=== PATIENT | male | born 1965 | race African-American/Black ===

== ENCOUNTER 2024-03-12 10:12 | Emergency (ER) | payer OTHER, SELFPAY ==
[2024-03-12 10:40] VITALS: BP 175/93; PULSE 64; RESP 16; TEMP 36.8; O2SAT 100
--- NOTE | 2024-03-12 12:04 | ED.GENADULT ---
HPI - General Adult General Chief complaint: Unspecified Stated complaint: ELEVATED BP OUT OF MEDS FROM CHESTNUT Time Seen by Provider: 03/12/24 11:32 History of Present Illness HPI narrative: 59-year-old male presents emergency room requesting med refill for amlodipine. Patient has no history of hypertension, has not taken his medications for 4 days. Denies chest pain, shortness of breath, palpitations, headaches, dizziness, hearing or vision changes. Related Data Home Medications Medication Instructions Recorded Confirmed amlodipine 10 mg tablet (Norvasc) 10 mg PO DAILY 03/12/24 03/12/24 Review of Systems Review of Systems: ROS unremarkable except for noted in HPI PMFSH Past Medical History Medical History Hepatitis C HTN (hypertension) Tobacco use Exam Narrative: GENERAL: Well-appearing, well-nourished, no physical limitations, and in no acute distress. HEAD: Normocephalic, atraumatic. EYES: Conjunctivae normal, PERRLA and EOMI. CHEST: Clear to auscultation. No respiratory distress. No wheezes rales or rhonchi. HEART: Regular rate and rhythm. No murmur heard. Normal peripheral pulses. ABDOMEN: Soft, nontender, nondistended, normal active bowel sounds. EXTREMITIES: Normal range of motion. No edema. No clubbing or cyanosis SKIN: Warm, dry, no rash. No noted wounds NEURO: No focal deficits. Alert and oriented x3. MAEW. CN's II-XI intact bilaterally, normal gait PSYCH: Cooperative. Normal mood and affect. Course Vital Signs Vital signs: Vital Signs Temperature 36.8 C 03/12/24 10:40 Pulse Rate 64 03/12/24 10:40 Respiratory Rate 16 03/12/24 10:40 Blood Pressure 175/93 H 03/12/24 10:40 Pulse Oximetry 100 03/12/24 10:40 Temperature 36.8 C 03/12/24 10:40 Pulse Rate 64 03/12/24 10:40 Respiratory Rate 16 03/12/24 10:40 Blood Pressure 175/93 H 03/12/24 10:40 Pulse Oximetry 100 03/12/24 10:40 Medical Decision Making Vital Signs Vital Signs: Vital Signs Temperature 36.8 C 03/12/24 10:40 Pulse Rate 64 03/12/24 10:40 Respiratory Rate 16 07/17/24 10:40 Blood Pressure 175/93 H 03/12/24 10:40 Pulse Oximetry 100 03/12/24 10:40 Temperature 36.8 C 03/12/24 10:40 Pulse Rate 64 03/12/24 10:40 Respiratory Rate 16 03/12/24 10:40 Blood Pressure 175/93 H 03/12/24 10:40 Pulse Oximetry 100 03/12/24 10:40 Discharge Plan Discharge Clinical Impression: HTN (hypertension) Patient Disposition: Home, Self-Care Condition: Stable Instructions: Antibiotic Form, Hypertension (ED) Prescriptions: New amlodipine 10 mg tablet 10 mg PO DAILY Qty: 30 0RF No Action amlodipine [Norvasc] 10 mg tablet 10 mg PO DAILY Follow-up/Referrals: Jayjay Cantu MD [Primary Care Provider] - Time of Disposition: 12:06
[2024-03-12 12:11] VITALS: BP 155/93; PULSE 50; PULSE 51; RESP 14; O2SAT 99
[2024-03-12] MEDS: amLODIPine BESYLATE 10 MG TABLET PO (12:17)
== END 2024-03-12 12:20 | disposition home or self-care (01) ==
PROVIDERS: Emergency Provider Nurse Practitioner Family; PCP Internal Medicine
DX: I10 Essential (primary) hypertension (principal); Z76.0 Encounter for issue of repeat prescription
CPT/HCPCS: 99283; A9270

== ENCOUNTER 2025-01-13 13:44 | Emergency (ER) | payer OTHER, SELFPAY ==
[2025-01-13 13:46] VITALS: BP 142/73; PULSE 68; RESP 16; TEMP 36.6; O2SAT 98
--- OUTSIDE RECORDS SUMMARY | 2025-01-13 13:47 | XMS_ITS | Encounter Summary ---
Author Organization [facility] Address [address] [place] [address] Phone Care Team Providers Care Silk Folder Name Role Phone Krysta Flores PAC Primary Care Pro vider Ami Amin MD Unavailable Jayjay Cantu MD Primary Care Provider [phone] Reason for Visit * Reason Comments Medication Refill Encounter Details Date Type Department Care Team (Late st Contact Info) Description 10/12/2020 Refill [facility] - Family [facility] [address] [place] [address] Krysta Flores, PAC [address] [place] [address] Medication Refill Social History Tobacco Use Types Packs/Day Years Used Date Smoking Tobacco: Every Day Cigarettes 0.1 35 Smokeless Tobacco: Never Comments:1 to 2 a day Alcohol Use Standard Drinks/Week Comments Yes 1 (1 standard drink = 0.6 oz pur e alcohol) 1-2 drinks week PHQ-2 Answer Date Recorded PHQ-2 Score 0 04/30/2019 Sex and Gender Information Value Date Recorded Sex Assigned at Not on file Legal Sex Male 10:02 AM CDT Gender Identity Not on file Sexual Orientation Not on file Occupation Industry Job Start Date Job End Date unemployed Not on file Not on file Not on file documented as of this encounter Miscellaneous Notes * Telephone Encounter - Elle Danielson RN - 10/13/2020 4:21 PM CST gabapentin (NEURONTIN) 100 MG Capsule 60 Capsule 0 10/04/2020 Sig: TAKE 1 CAPSULE BY MOUTH TWICE DAILY Sent to pharmacy as: Gabapentin 100 MG Oral Capsule (NEURONTIN) Class: E Prescribe E-Prescribing Status: Receipt confirmed by pharmacy (10/04/2020 10:00 AM CHILD PSYCHIATRIST) gabapentin (NEURONTIN) 100 MG Capsule [[id number]] 1000 Status: Active Ordering user: Krysta Flores PAC 10/04/20 1000 Authorized by: Krysta Flores PAC Frequency: ??10/04/20 - Until Discontinued Released by: Krysta Flores PAC 10/04/20 1000 Pharmacy [id number] AT [facility] duplicate D PSYCHIATRIST documented in this encounter Plan of Treatment Not on file documented as of this encounter Visit Diagnoses Not on filedocumented in this encounter Additional Health Concerns Infection Onset Date Last Indicated Resolved Time COVID - 19 09/19/2024 09/19/2024 09/19/2024 11:5 8 AM CHILD PSYCHIATRIST COVID - 19 Confirmed 09/19/2024 09/19/2024 025 12:16 AM CHILD PSYCHIATRIST Assessment Noted Time PHQ-9 Depression Total Score: 0 11/05/19 19 12:00 PM CDT documented as of this encounter Care Teams Silk Folder Relationship Specialty Start Date End Date Krysta Flores PAC [address] [place] [address] PCP - General Physician Breakfast Manager 05/31/17 11/23/21 Jayjay Cantu MD NPI: [id number] [place] [address] [place] [address] PCP - General Internal Medicine 09/19/24 Ami Amin MD [address] [address] Psychiatry 05/28/19 documented as of this encounter
--- OUTSIDE RECORDS SUMMARY | 2025-01-13 13:47 | XMS_ITS | Encounter Summary ---
Author Organization [facility] Address [address] [place] [address] Phone Care Team Providers Care Forming Fixer Name Role Phone Krysta Flores PAC Primary Care Pro vider Ami Amin MD Unavailable Jayjay Cantu MD Primary Care Provider [phone] Reason for Visit * Reason Comments Medication Refill Encounter Details Date Type Department Care Team (Late st Contact Info) Description 10/23/2020 Refill [facility] - Family [facility] [address] [place] [address] Krysta Flores, PAC [address] [place] [address] Medication Refill Social History Tobacco [...] encounter Miscellaneous Notes * Telephone Encounter - Krysta Flores PAC - 10/27/2020 4:10 PM CST Changed date to 11/01 He just had this filled 10/04 He needs to f/u with NEURO or pain mgment for continued use of this medication He has seen neuro in the past Let him know that he needs to continue seeing them to get this medication in the future REPAIRER * Telephone Encounter - Kalpana Tsai RN - 10/25/2020 10:01 AM TUBE REPAIRER Please review and sign. REPAIRER documented in this encounter Plan of Treatment Not on file documented as of this encounter Visit Diagnoses Not on filedocumented in this encounter Additional Health Concerns Infection Onset Date Last Indicated Resolved Time COVID - 19 09/19/2024 09/19/2024 09/19/2024 11:5 8 AM TUBE REPAIRER COVID - 19 Confirmed 09/19/2024 09/19/2024 025 12:16 AM TUBE REPAIRER Assessment Noted Time PHQ-9 Depression Total Score: 0 11/05/19 19 12:00 PM CDT documented as of this encounter Care Teams Forming Fixer Relationship Specialty Start Date End Date Krysta Flores PAC [address] [place] [address] PCP - General Physician Braker Passenger Train 05/31/17 11/23/21 Jayjay Cantu MD [address] [place] [address] PCP - General Internal Medicine 09/19/24 Ami Amin MD [address] [place] [address] Psychiatry 05/28/19 documented as of this encounter
--- OUTSIDE RECORDS SUMMARY | 2025-01-13 13:47 | XMS_ITS | Clinical Summary ---
Author Organization [facility] Address [address] [place] [address] Care Team Providers Care Client Partner Name Role Phone Unavailable Primary Care Provider Unavailabl e Source Comments [facility],non-owned Affiliates and Associated Physician Practices is amultiple site organization consisting of ambulatory clinics and hospital sitesin [place], [place], [place] and [place]. This disclosure is being madepursuant to the Care Everywhere program and may not contain all information available regarding this patient. Last updated [facility] Allergies Active Allergy Reactions Criticality Noted Date Comments Tramadol Swelling,Other,Skin Reactions,Nausea and/or Vomiting Medium 07/15/2017 Pt reports skin reaction and anxiety Pt reports skin reaction and anxiety Medications * This document contains information received from the source organization and may not represent a complete record from that organization. * Be aware that medications may not be up to date on this document. Alwaysverify current medications with the patient. amLODIPine (NORVASC) 10 MG tabletIndicati ons:Hypertensi on Take 10 mg by mouth once daily Reasons: High Blood Pressure Disorder Active ibuprofen (MOTRIN) 600 MG tabletIndicati ons:pain Take 600 mg by mouth every 8 hours as needed for Pain Reasons: pain Active QUEtiapine (SEROQUEL) 50 MG tabletIndicati ons:schizoaffe ctive Take 1 tablet by mouth at bedtime Reasons: schizoaffective 30 tablet 1 07/17/20 17 Active meloxicam (MOBIC) 7.5 MG tablet Take 7.5 mg by mouth 2 times daily 05/29/20 18 Active PARoxetine (PAXIL) 10 MG tablet TAKE 1 TABLET BY MOUTH DAILY 05/28/20 18 Active Active Problems Problem Noted Date Diagnosed Date Cervicalgia 04/03/2018 Chronic bilateral low back pain without sciatica 04/03/2018 Numbness and tingling in both hands 04/03/2018 Numbness and tingling of both feet 04/03/2018 Depressive disorder 07/16/2017 Tobacco use disorder 06/28/2017 Multiple closed fractures of ribs of right side 06/21/2017 Pleural effusion 06/21/2017 Pneumothorax 06/21/2017 Hepatitis C virus infection without hepatic coma 05/31/2017 Overview (06/27/2018): 06/07/18 Fibroscan CAP 261, E 14.1 kPa Hypertension 05/29/2017 Schizophrenia 05/29/2017 Social History Tobacco Use Types Packs/Day Years Used Date Smoking Tobacco: Every Day Cigarettes Smokeless Tobacco: Former Tobacco Cessation:Ready to Q uit: No; Counseling Given: No Alcohol Use Standard Drinks/Week Comments Yes 3 (1 standard drink = 0.6 oz pur e alcohol) 1-2 glasses every other day Sex and Gender Information Value Date Recorded Sex Assigned at Not on file Legal Sex Male 9:15 PM POLICE INSPECTOR Gender Identity Not on file Sexual Orientation Not on file Last Filed Vital Signs Vital Sign Reading Time Taken Comments Blood Pressure 154/106 06/07/2018 11:06 AM CDT Pulse 67 06/07/2018 11:06 AM CDT Temperature 36.5 C (97.7 F) 06/07/2018 11:06 AM CDT Respiratory Rate 18 07/17/2017 12:19 PM POLICE INSPECTOR Oxygen Saturation 96% 06/07/2018 11:06 AM CDT Inhaled Oxygen Concentration - - Weight 76.7 kg (169 lb) 06/07/2018 11:06 AM CDT Height 167.6 cm (5' 6 ) 06/07/2018 11:06 AM CDT Body Mass Index 27.28 06/07/2018 11:06 AM CDT Plan of Treatment Health Maintenance Due Date Last Done Comments COLOGUARD (AGES 45-75) - COLON CA SCREENING 1967 COLON MONITORING 1967 COLONOSCOPY - COLON CA SCREENING 1967 CT COLONOGRAPHY - COLON CA SCREENING 1967 Colorectal Cancer Screening 1967 FIT - COLON CA SCREENING 1967 FLEX SIG - COLON CA SCREENING 1967 HIV SCREENING 1982 DTAP/TDAP/TD VACCINES (1 - Tdap) 1986 HEPATITIS B VACCINE (1 of 3 - 19+ 3-dose series) 1986 PNEUMOCOCCAL VACCINE 50+ (1 of 2 - PCV) 1986 ZOSTER VACCINE (1 of 2) 2017 SCREENING FOR DIABETES 07/16/2020 07/16/2017, 2016 LIPID TESTING 07/16/2022 07/16/2017 COVID-19 VACCINE (1 - season) 2024 DEPRESSION SCREENING 08/27/2024 INFLUENZA VACCINE (Season Ended) 2025 HEPATITIS C SCREENING Completed 06/07/2018 , 05/30/2018, 04/03/2018, Additional history exists HIB VACCINE Aged Out No longer eligi ble based on patient's age to complete this topic HPV VACCINE Aged Out No longer eligi ble based on patient's age to complete this topic MENINGOCOCCAL (Group B) VACCINE SHARED DECISION-MAKING Aged Out No longer eligible based on patient's age to complete this topic MENINGOCOCCAL GROUPS A/C/Y/W VACCINE Aged Out No longer eligible based on patient's age to complete this topic Procedures Procedure Name Priority Date/Time Associated Diagnosis Comments LIPID PROFILE AM Draw 07/16/2017 2:08 AM POLICE INSPECTOR HEMOGLOBIN A1C Routine 07/16/2017 2:07 AM POLICE INSPECTOR from Last 3 Months or Most Recently Relevant to Health Maintenance Results * LIPID PROFILE (07/16/2017 2:08 AM POLICE INSPECTOR) Cholesterol 159 <200 mg/dL 07/16/2017 2:43 AM POLICE INSPECTOR [facility] Triglycerides 86 <150 mg/dL 07/16/2017 2:43 AM POLICE INSPECTOR [facility] HDL Cholesterol 55 >40 mg/dL 7 2:43 AM POLICE INSPECTOR [facility] LDL Calculated 87 <130 mg/dL 07/16/2017 2:43 AM POLICE INSPECTOR [facility] VLDL Calculated 17 <=30 mg/dL 7 2:43 AM POLICE INSPECTOR [facility] Chol HDL Ratio 2.9 <4.5 07/16/2017 2:43 AM POLICE INSPECTOR [facility] LDL/HDL Ratio 1.6 <5.0 07/16/2017 2:43 AM POLICE INSPECTOR [facility] Blood BLOOD SPECIMEN / Unknown Venipuncture / Unknown 07/16/2017 2:08 AM POLICE INSPECTOR 07/16/2017 2:18 AM POLICE INSPECTOR Saleem Patel MD LAB - CHEMISTRY ORD ERABLES Final Result Performing Organization Address [facility] Co de Phone Number [facility] [address] [place] [address] * HEMOGLOBIN A1C (07/16/2017 2:07 AM POLICE INSPECTOR) Hemoglobin A1c 5.1 4.2 - 6.3 % 07/16/2017 2:40 AM POLICE INSPECTOR [facility] Estimated Average Glucose 100 mg/dL 07/16/2017 2:40 AM POLICE INSPECTOR [facility] Whole Blood BLOOD SPECIMEN WITH EDTA / Unknown Venipuncture / Unknown 07/16/2017 2:07 AM POLICE INSPECTOR 07/16/2017 2:18 AM POLICE INSPECTOR Saleem Patel MD LAB - CHEMISTRY ORD ERABLES Final Result Performing Organization Address [facility] de Phone Number [facility] [address] [place] [address] from Last 3 Months or Most Recently Relevant to Health Maintenance Insurance [facility] MEDICA[facility] - [place] Advance Directives * Full Code (Latest Code Status on File) Date Activated Date Inactivated Comments 07/16/2017 1:38 AM 07/17/2017 3:46 PM
--- OUTSIDE RECORDS SUMMARY | 2025-01-13 13:47 | XMS_ITS | Encounter Summary ---
Author Organization [facility] Address [address] [place] [address] Phone Care Team Providers Care Screen And Cyclone Repairer Name Role Phone Krysta Flores PAC Primary Care Pro vider Ami Amin MD Unavailable Jayjay Cantu MD Primary Care Provider [phone] Reason for Visit * Reason Comments Medication Refill Encounter Details Date Type Department Care Team (Late st Contact Info) Description 03/03/2021 Refill [facility] Medical [facility] - Family [facility] [address] [place] [address] Krysta Flores, PAC [address] [address] Medication Refill Social History Tobacco Use Types Packs/Day Years Used Date Smoking Tobacco: Every Day Cigarettes 0.1 35 Smokeless Tobacco: Never Comments:1 to 2 a day Alcohol Use Standard Drinks/Week Comments Not Currently 1 (1 standard drink = 0.6 oz [...] encounter Miscellaneous Notes * Telephone Encounter - Suri Van RN - 03/04/2021 8:53 AM CDT Medication failed the protocol, provider to review and approve the medication order if appropriate. Requested Prescriptions Pending Prescriptions Disp Refills gabapentin (NEURONTIN) 100 MG Capsule [Pharmacy Med Name: GABAPENTIN 100MG CAPSULES] 60 Capsule 0 Sig: TAKE 1 CAPSULE BY MOUTH TWICE DAILY [facility]: Anticonvulsants Passed - 03/03/2021 1:05 PM Passed - Valid encounter within last 12 months Past Office Visits Recent Outpatient Visits 7 months ago Chronic bilateral low back pain without sciatica [facility] - Krysta Zavala PAC 1 year ago Essential hypertension [facility] Krysta Zavala PAC 1 year ago Essential hypertension [facility] Krysta Zavala PAC 2 years ago Essential hypertension [facility] - Krysta Zavala PAC 2 years ago [facility]a [facility] Upcoming Appointments STATION INSTALLER - Recent and Past Visits Recent Visits Date Type Provider Dept 07/16/20 Office Visit [facility]rysta Flores PAC [facility] Showing recent visits within past 460 days with a meds authorizing provider and meeting all other requirements Future Appointments No visits were found meeting these conditions. Showing future appointments within next 90 days with a meds authorizing provider and meeting all other requirements documented in this encounter Plan of Treatment Not on file documented as of this encounter Visit Diagnoses Not on filedocumented in this encounter Additional Health Concerns Infection Onset Date Last Indicated Resolved Time COVID - 19 09/19/2024 09/19/2024 09/19/2024 11:5 8 AM FARM EQUIPMENT ENGINEER COVID - 19 Confirmed 09/19/2024 09/19/202410/09/2 025 12:16 AM FARM EQUIPMENT ENGINEER Assessment Noted Time PHQ-9 Depression Total Score: 0 03/11/20 19 12:00 PM CDT documented as of this encounter Care Teams Screen And Cyclone Repairer Relationship Specialty Start Date End Date Krysta Flores, PRAVIN [address] [facility] [address] PCP - General Physician Roll Trucker 05/31/17 11/23/21 Jayjay Cantu MD [address] [facility] [place] [address] PCP - General Internal Medicine 09/19/24 Ami Amin MD [address] [address] Psychiatry 05/28/19 documented as of this encounter
--- OUTSIDE RECORDS SUMMARY | 2025-01-13 13:47 | XMS_ITS | Clinical Summary ---
Author Organization [facility] Address [address] [place] [address] Phone Care Team Providers Care Director Of Radio Services Name Role Phone Ami Amin MD Unavailable Jayjay Cantu MD Primary Care Provider [phone] Medications QUEtiapine Fumarate (SEROQUEL) 50 MG Tablet Take 1 Tab by mouth daily. 30 Tab 1 9 Active Additional Information Patient not taking.Reported on 05/28/2019 PARoxetine (PAXIL) 10 MG Tablet Take 1 Tab by mouth daily. 90 Tab 9 Active PARoxetine (PAXIL) 40 MG Tablet Take 1 Tab by mouth daily. 1 9 Active QUEtiapine (SEROQUEL) 100 MG Tablet Take 1 Tab by mouth nightly. 1 9 Active triamcinolone (KENALOG) 0.1 % Ointment Apply thin film to affected area(s) twice daily until healed. 80 g 3 9 Active Additional Information Patient not taking.Reported on 07/16/2020 meloxicam (MOBIC) 15 MG Tablet TAKE 1 TABLET BY MOUTH EVERY MORNING WITH FOOD 90 Tab 1 0 Active losartan potassium-hydro chlorothiazide (HYZAAR) 100-25 MG Tablet Take by mouth. 01/19/201 6 Active amLODIPine (NORVASC) 10 MG Tablet Take 1 Tab by mouth daily. 90 Tab 2 1 Active Zolpidem Tartrate (AMBIEN PO) Take by mouth. Act parveen ondansetron (ZOFRAN) 4 MG Tablet Take 1 Tablet by mouth every 8 hours as needed for Nausea - 1st line. 10 Tablet 1 Active dicyclomine (BENTYL) 20 MG Tablet Take 1 Tablet by mouth every 6 hours. 30 Tablet 1 Active gabapentin (NEURONTIN) 100 MG Capsule TAKE 1 CAPSULE BY MOUTH TWICE DAILY 60 Capsule 1 Active Active Problems Problem Noted Date Diagnosed Date Eczema 05/28/2019 Cocaine use 02/04/2019 Overview (02/04/2019): UDS 2019 Chronic pain of both knees 07/03/2018 Chronic bilateral low back pain without sciatica 04/03/2018 Cervicalgia 04/03/2018 Numbness and tingling in both hands 04/03/2018 Numbness and tingling of both feet 04/03/2018 Marijuana abuse 06/28/2017 Tobacco use disorder 06/28/2017 Multiple closed fractures of ribs of right side 06/21/2017 Pneumothorax 06/21/2017 Pleural effusion 06/21/2017 Hepatitis C virus infection without hepatic coma 05/31/2017 Hypertension 05/29/2017 Schizophrenia 05/29/2017 Encounters Date Type Department Care Team Description 10/28/2024 Telephone [facility] [address] [place] [id number] Nina Harding, PT from Last 3 Months Immunizations Immunization Administration Dates Next Due Hepatitis A And Hepatitis B Vaccine 12/15/2015,0 09/06/2015,06/15/2015 TDAP Vaccine 08/27/2011 Family History Medical History Relation Name Comments Cancer Maternal Aunt breast Diabetes Maternal Grandfather Stroke Maternal Grandmother Diabetes Mother Heart Attack Mother Relation Name Status Comments Father Maternal Aunt Maternal Grandfather Maternal Grandmother Mother Alive Social History Tobacco Use Types Packs/Day Years Used Date Smoking Tobacco: Every Day Cigarettes 0.1 35 Smokeless Tobacco: Never Tobacco Cessation:Ready to Q uit: No; Counseling Given: Yes Comments:1 to 2 a day Alcohol Use [...] file Not on file Not on file Last Filed Vital Signs Vital Sign Reading Time Taken Comments Blood Pressure 130/99 09/19/2024 12:50 PM BULB FARMWORKER Pulse 88 09/19/2024 12:50 PM BULB FARMWORKER Temperature 36.6 C (97.8 F) 09/19/2024 10:49 AM BULB FARMWORKER Respiratory Rate 17 09/19/2024 12:50 PM BULB FARMWORKER Oxygen Saturation 100% 09/19/2024 12:50 PM BULB FARMWORKER Inhaled Oxygen Concentration - - Weight 63.5 kg (140 lb) 09/19/2024 10:49 AM BULB FARMWORKER Height 167.6 cm (5' 6 ) 09/19/2024 10:49 AM BULB FARMWORKER Body Mass Index 22.6 09/19/2024 10:49 AM BULB FARMWORKER Plan of Treatment Health Maintenance Due Date Last Done Comments Cologuard 2017 Immunochemical Fecal Occult Blood 2017 Pneumococcal Immunization (5 0+ years) (1 of 1 - PCV) 2017 Zoster Immunization (1 of 2) 2017 Colonoscopy 11/05/2018 11/05/2017 Colorectal Cancer Screening 11/05/2018 Td Immunization Every 10 Yea rs (Adults With 1 Tdap) 08/27/2021 08/27/2011 Influenza Immunization (#1) 2024 SARS-COV-2 Immunization ( - season) 2024 Respiratory Syncytial Virus (RSV) Immunization (Adult) (1 - 1-dose 75+ series) 2042 11/05/2017 Hepatitis B Immunization Completed 016, 09/06/2015, 06/15/2015 PSA Discussion Completed 11/05/2017, 06/04/2017 Meningococcal Immunization (ACWY) Aged Out No longer eligible b ased on patient's age to complete this topic Rotavirus Immunization Aged Out No lo nger eligible based on patient's age to complete this topic Procedures Procedure Name Priority Date/Time Associated Diagnosis Comments PSA DIAGNOSTIC,TOTAL Routine 11/05/2017 7:28 AM CDT from Last 3 Months or Most Recently Relevant to Health Maintenance Results * (ABNORMAL) PSA Diagnostic Total (11/05/2017 7:28 AM CDT) PSA, TOTAL (PROSTATIC SPECIFIC ANTIGEN) 5.36(H) 0.00 - 4.00 ng/mL 11/05/2017 8:44 AM CDT [facility] Blood specimen (specimen) BLOOD SPECIMEN / Unknown Venipuncture / Unknown 11/05/2017 7:28 AM CDT 11/05/2017 7:57 AM CDT Narrative [facility] - 11/05/2017 8:44 AM CDT PSA NOTE: The PSA value should be used in conjunction with information available from clinical evaluation and other diagnostic procedures. Jamaal Rahman DO CHEMISTRY ORDERABLES Final Resu lt [facility] [address] [place] [address] from Last 3 Months or Most Recently Relevant to Health Maintenance Insurance MEDICAID [place] Care Teams Director Of Radio Services Relationship Specialty Start Date End Date Jayjay Cantu MD [address] [facility] [address] PCP - General Internal Medicine 09/19/24 Ami Amin MD [address] [place] [address] Psychiatry 05/28/19
--- OUTSIDE RECORDS SUMMARY | 2025-01-13 13:47 | XMS_ITS | Encounter Summary ---
Author Organization [facility] Address [address] [place] [address] Phone Care Team Providers Care Food Supervisor Name Role Phone Krysta Flores PAC Primary Care Pro vider Ami Amin MD Unavailable Jayjay Cantu MD Primary Care Provider [phone] Reason for Visit * Reason Comments Medication Refill Encounter Details Date Type Department Care Team (Late st Contact Info) Description 09/24/2020 Refill [facility] - Family [facility] [address] [place] [address] Krysta Flores, PAC [address] [facility] [place] [address] Medication Refill Social History Tobacco [...] encounter Miscellaneous Notes * Telephone Encounter - Jennifer Payne RN - 10/11/2020 11:54 AM CST Krysta Flores refilled the patient's gabapentin on 10/04/20. / See telephone encounter in chart 10/11/20. MATERNITY * Telephone Encounter - Krysta Flores PAC - 10/04/2020 10:00 AM CST Does this patient see neurologist? If so, future Neurontin orders need to come thru them. Thanks! MATERNITY * Telephone Encounter - Elle Danielson RN - 09/27/2020 8:53 AM CST Last dispersed 07/16/20 for 30 days supply Per nursing clinical judgement, provider to review and approve the medication(s) order(s) if appropriate. Requested Prescriptions Pending Prescriptions Disp Refills gabapentin (NEURONTIN) 100 MG Capsule [Pharmacy Med Name: GABAPENTIN 100MG CAPSULES] 60 Cap Sig: TAKE 1 CAPSULE BY MOUTH TWICE DAILY Neurology: Anticonvulsants Passed - 09/24/2020 5:35 PM Passed - Valid encounter within last 12 months Past Office Visits Recent Outpatient Visits 2 months ago Chronic bilateral low back pain without sciatica [facility] - Krysta Zavala PAC 10 months ago Essential hypertension [facility] - Krysta Zavala PAC 1 year ago Essential hypertension [facility] - Krysta Zavala PAC 1 year ago Essential hypertension [facility] - Krysta Zavala PAC 2 years ago Arthritis [facility] - Krysta Zavala PAC Upcoming Appointments Future Appointments In 3 months Krysta Flores PAC [facility] - Internal Medicine - [address]ja [address] 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 Showing future appointments within next 90 days with a meds authorizing provider and meeting all other requirements MATERNITY documented in this encounter Plan of Treatment Not on file documented as of this encounter Visit Diagnoses Not on filedocumented in this encounter Additional Health Concerns Infection Onset Date Last Indicated Resolved Time COVID - 19 09/19/2024 09/19/2024 09/19/2024 11:5 8 AM RN MATERNITY COVID - 19 Confirmed 09/19/2024 09/19/2024 025 12:16 AM RN MATERNITY Assessment Noted Time PHQ-9 Depression Total Score: 0 11/05/19 19 12:00 PM CDT documented as of this encounter Care Teams Food Supervisor Relationship Specialty Start Date End Date Krysta Flores PAC [address] [place] [address] PCP - General Physician Network Engineer 05/31/17 11/23/21 Jayjay Cantu MD [address] [facility] [place] [address] PCP - General Internal Medicine 09/19/24 Ami Amin MD [address] [address] Psychiatry 05/28/19 documented as of this encounter
--- OUTSIDE RECORDS SUMMARY | 2025-01-13 13:47 | XMS_ITS | Encounter Summary ---
Author Organization [facility] Address [address] [facility] [place] [address] Phone Care Team Providers Care Customer Service Associate Name Role Phone Ami Amin MD Unavailable Jayjay Cantu MD Primary Care Provider [phone] Reason for Referral * PT/OT/ST (Routine) - Authorized Specialty Diagnoses / Procedures Referred By Contac t Referred To Contact Physical Therapy Diagnoses Adhesive capsulitis of right shoulder Jayjay Cantu MD [address] [place] [address] [place] [address] Phone: tel: fax: [facility] [address] [facility], [address] [address] Phone: tel: fax: Referral ID Status Reason Start Date Expiration Date V isits Requested Visits Authorized [id number] Authorized 09/24/2024 50 12 Scheduling Instructions PACKER Encounter Details Date Type Department Care Team (Late st Contact Info) Description 09/24/2024 Transcribe Orders [facility] [address] [place] [address] Jayjay Cantu MD [address] [place] [address] Adhesive capsulitis of right shoulder (Primary Dx) Social History Tobacco Use Types Packs/Day Years [...] on file documented as of this encounter Plan of Treatment Scheduled Referrals Name Type Priority Associated Diagnoses Orde r Schedule PHYSICAL THERAPY REFERRAL Outpatient Referral Routine Adhesive capsulitis of right shoulder Expected: 09/24/2024, Expires: 09/24/2025 documented as of this encounter Visit Diagnoses Diagnosis Adhesive capsulitis of right shoulder- Primary Adhesive capsulitis of shoulder documented in this encounter Additional Health Concerns Infection Onset Date Last Indicated Resolved Time COVID - 19 Confirmed 09/19/2024 09/19/2024 025 12:16 AM GIFT PACKER Assessment Noted Time PHQ-9 Depression Total Score: 0 11/05/19 19 12:00 PM CDT documented as of this encounter Care Teams Customer Service Associate Relationship Specialty Start Date End Date Jayjay Cantu MD [address] [place] [address] PCP - General Internal Medicine 09/19/24 Ami Amin MD [facility] [address] [address] Psychiatry 05/28/19 documented as of this encounter
--- OUTSIDE RECORDS SUMMARY | 2025-01-13 13:48 | XMS_ITS | Patient Health Record ---
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 Name Role Phone Cantu Jayjay Primary Care Provider Yehuda Lema Unavailable [phone] Lucía Spence Unavailable [phone] Lulu Ortiz Unavailable [phone] Donal Pan Unavailable [phone] Kaylyn Clemons Unavailable [phone] Caty Gifford Unavailable [phone] Allergies Allergen (clinical drug ingredient) Drug/Non Drug Allergy documented on EMR Reaction Allergy Type Onset Date Status No Known Drug Allergy Unknown Drug Allergy Active Results Component Value Reference Range Notes Hemoglobin A1c CLIA Waived Reviewed date:09/03/2024 03:14:20 PM Interpretation: Performing Lab: Notes/Report: Hemoglobin A1c 5.2 4.0 - 6.4 % 12 Panel Urine Drug Screen Reviewed date:08/26/2024 03:06:38 PM Interpretation: Performing Lab: Notes/Report: THC neg GUSTAVO neg MOP (OPI) neg AMP neg MET POS BAR neg BZO neg MDMA neg MTD neg OXY neg PCP neg BUP POS UA/M w/rflx Culture, Routine Reviewed date:09/08/2024 11:44:45 AM Interpretation: Performing Lab:[facility] [place], [address] [facility], [place], Phone - [phone], Director - Vivien Notes/Report: Specific [place] 1.016 1.005-1.030 pH 8.0 5.0-7.5 Urine-Color Yellow Yellow Appearance Clear Clear WBC Esterase Negative Negative Protein 1+ Negative/Trace Glucose Negative Negative Ketones Negative Negative Occult Blood Negative Negative Bilirubin Negative Negative Urobilinogen,Semi-Qn 1.0 0.2-1.0 mg/dL Nitrite, Urine Negative Negative Microscopic Examination See below: Micr oscopic was indicated and was performed. Urinalysis Reflex This speci men will not reflex to a Urine Culture. WBC None seen 0 - 5 /hpf RBC None seen 0 - 2 /hpf Epithelial Cells (non renal) None seen 0 - 10 /hpf Casts None seen None seen /lpf Bacteria None seen None seen/Few CBC With Differential/Platel et* Reviewed date:04/10/2024 11:58:15 AM Interpretation: Performing Lab:[facility] [place], [address] [facility], Phone - [phone], Director - Vivien Notes/Report: WBC 6.6 3.4-10.8 x10E3/uL RBC 4.14 4.14-5.80 x10E6/uL Hemoglobin 13.0 13.0-17.7 g/dL Hematocrit 39.5 37.5-51.0 % MCV 95 79-97 fL MCH 31.4 26.6-33.0 pg MCHC 32.9 31.5-35.7 g/dL RDW 12.7 11.6-15.4 % Platelets 237 150-450 x10E3/uL Neutrophils 61 Not Estab. % Lymphs 32 Not Estab. % Monocytes 6 Not Estab. % Eos 0 Not Estab. % Basos 1 Not Estab. % Neutrophils (Absolute) 4.0 1.4-7.0 x10E3/uL Lymphs (Absolute) 2.1 0.7-3.1 x10E3/uL Monocytes(Absolute) 0.4 0.1-0.9 x10E3/uL Eos (Absolute) 0.0 0.0-0.4 x10E3/uL Baso (Absolute) 0.0 0.0-0.2 x10E3/uL Immature Granulocytes 0 Not Estab. % Immature Grans (Abs) 0.0 0.0-0.1 x10E3/uL 12 Panel Urine Drug Screen Reviewed date:07/28/2024 08:57:49 AM Interpretation: Performing Lab: Notes/Report: THC neg GUSTAVO neg MOP (OPI) neg AMP neg MET neg BAR neg BZO neg MDMA neg MTD neg OXY neg PCP neg BUP POS 12 Panel Urine Drug Screen Reviewed date:08/13/2024 09:25:56 AM Interpretation: Performing Lab: Notes/Report: THC neg GUSTAVO neg MOP (OPI) neg AMP neg MET POS BAR neg BZO neg MDMA neg MTD neg OXY neg PCP neg BUP POS 12 Panel Urine Drug Screen Reviewed date:04/09/2024 09:26:34 AM Interpretation: Performing Lab: Notes/Report: THC neg GUSTAVO neg MOP (OPI) neg AMP neg MET neg BAR neg BZO POS MDMA neg MTD neg OXY neg PCP neg BUP POS Buprenorphine and Metabolite (Urine test) Reviewed date:07/09/2024 10:33:31 AM Interpretation: Performing Lab:[facility], [address], [place], Phone - [phone], Director - PhDAbudu Notes/Report: Clinical Information:[id number]:[id number] Buprenorphine Positive Confirmation performed by Mass Spectrometry Buprenorphine Positive Buprenorphine Conf, MS, UR 174 Cutoff=10 ng/m L Norbuprenorphine Positive Norbuprenorphine Conf, MS, UR 584 Cutoff=10 ng/mL 12 Panel Urine Drug Screen Reviewed date:04/30/2024 09:03:25 AM Interpretation: Performing Lab: Notes/Report: THC neg GUSTAVO neg MOP (OPI) neg AMP neg MET neg BAR neg BZO neg MDMA neg MTD neg OXY neg PCP neg BUP POS 12 Panel Urine Drug Screen Reviewed date:06/11/2024 09:26:18 AM Interpretation: Performing Lab: Notes/Report: THC neg GUSTAVO neg MOP (OPI) neg AMP neg MET neg BAR neg BZO neg MDMA neg MTD neg OXY neg PCP neg BUP POS 12 Panel Urine Drug Screen Reviewed date:09/29/2024 10:07:08 AM Interpretation: Performing Lab: Notes/Report: THC neg GUSTAVO neg MOP (OPI) neg AMP neg MET neg BAR neg BZO neg MDMA neg MTD neg OXY neg PCP neg BUP POS 12 Panel Urine Drug Screen Reviewed date:12/03/2024 01:40:59 PM Interpretation: Performing Lab: Notes/Report: THC neg GUSTAVO neg MOP (OPI) neg AMP neg MET neg BAR neg BZO neg MDMA neg MTD neg OXY neg PCP neg BUP POS 12 Panel Urine Drug Screen Reviewed date:01/30/2024 09:12:20 AM Interpretation: Performing Lab: Notes/Report: THC neg GUSTAVO neg MOP (OPI) neg AMP neg MET neg BAR neg BZO neg MDMA neg MTD neg OXY neg PCP neg BUP POS 12 Panel Urine Drug Screen Reviewed date:02/27/2024 09:00:45 AM Interpretation: Performing Lab: Notes/Report: THC neg GUSTAVO neg MOP (OPI) neg AMP neg MET Pos BAR neg BZO neg MDMA neg MTD neg OXY neg PCP neg BUP Pos QuantiFERON-TB Gold Plus ([id number]) Reviewed date:05/26/2024 10:53:23 AM Interpretation:Negative Performing Lab:[facility], [address], [place], Phone - [phone], Director - Vivien Notes/Report: QuantiFERON Incubation Incubation performed. QuantiFERON-TB Gold Plus Negative Negative No response to M tuberculosis antigens detected. Infection with M tuberculosis is unlikely, but high risk individuals should be considered for additional testing (ATS/IDSA/CDC Clinical Practice Guidelines, 2017). The reference range is an Antigen minus Nil result of <0.35 IU/mL. Chemiluminescence immunoassay methodology QuantiFERON Criteria QuantiFERON-TB Gold Plus is a qualitative indirect test for M tuberculosis infection (including disease) and is intended for use in conjunction with risk assessment, radiography, and other medical and diagnostic evaluations. The QuantiFERON-TB Gold Plus result is determined by subtracting the Nil value from either TB antigen (Ag) value. The Mitogen tube serves as a control for the test. QuantiFERON TB1 Ag Value 0.00 QuantiFERON TB2 Ag Value 0.04 QuantiFERON Nil Value 0.01 QuantiFERON Mitogen Value >10.00 12 Panel Urine Drug Screen Reviewed date:12/31/2024 09:07:03 AM Interpretation: Performing Lab: Notes/Report: THC neg GUSTAVO neg MOP (OPI) neg AMP neg MET neg BAR neg BZO neg MDMA neg MTD neg OXY neg PCP neg BUP POS 12 Panel Urine Drug Screen Reviewed date:10/31/2024 10:18:14 AM Interpretation: Performing Lab: Notes/Report: THC neg GUSTAVO neg MOP (OPI) neg AMP neg MET neg BAR neg BZO neg MDMA neg MTD neg OXY neg PCP neg BUP POS 12 Panel Urine Drug Screen Reviewed date:06/25/2024 09:18:37 AM Interpretation: Performing Lab: Notes/Report: THC neg GUSTAVO neg MOP (OPI) neg AMP neg MET POS BAR neg BZO neg MDMA neg MTD neg OXY neg PCP neg BUP POS Hemoglobin A1c* Reviewed date:04/10/2024 11:58:06 AM Interpretation: Performing [facility], [address] [place] [address], Phone - [phone], Director - [facility] Notes/Report: Hemoglobin A1c 5.1 4.8-5.6 % . Prediabetes: 5.7 - 6.4 Diabetes: >6.4 Glycemic control for adults with diabetes: <7.0 TSH* Reviewed date:04/10/2024 11:58:06 AM Interpretation: Performing Lab:[facility], Phone - [phone], Director - [facility] Notes/Report: TSH 1.380 0.450-4.500 uIU/mL Lipid Panel w/ Chol/HDL Rati o Reviewed date:04/10/2024 11:58:06 AM Interpretation: Performing Lab:[facility], Phone - [phone], Director - [facility] Notes/Report: Cholesterol, Total 183 100-199 mg/dL Triglycerides 79 0-149 mg/dL HDL Cholesterol 65 >39 mg/dL VLDL Cholesterol Pérez 15 5-40 mg/dL LDL Chol Calc ([facility]) 103 0-99 mg/dL T. Chol/HDL Ratio 2.8 0.0-5.0 ratio T. Chol/HDL Ratio Men Women 1/2 Avg.Risk 3.4 3.3 Avg.Risk 5.0 4.4 2X Avg.Risk 9.6 7.1 3X Avg.Risk 23.4 11.0 CMP 14 Comprehensive Metabol ic Panel* Reviewed date:04/10/2024 11:58:06 AM Interpretation: Performing Lab[facility], [address] [place] [address], Phone - [phone], Director - [facility] Notes/Report: Glucose 121 70-99 mg/dL BUN 12 6-24 mg/dL Creatinine 0.95 0.76-1.27 mg/dL eGFR 93 >59 mL/min/1.73 BUN/Creatinine Ratio 13 9-20 Sodium 142 134-144 mmol/L Potassium 3.6 3.5-5.2 mmol/L Chloride 97 96-106 mmol/L Carbon Dioxide, Total 30 20-29 mmol/L Calcium 9.9 8.7-10.2 mg/dL Protein, Total 8.3 6.0-8.5 g/dL Albumin 5.2 3.8-4.9 g/dL Globulin, Total 3.1 1.5-4.5 g/dL Bilirubin, Total 1.9 0.0-1.2 mg/dL Alkaline Phosphatase 82 44-121 IU/L AST (SGOT) 34 0-40 IU/L ALT (SGPT) 35 0-44 IU/L Comprehensive Drug Analysis, Urine Reviewed date:05/15/2024 01:11:15 PM Interpretation: Performing Lab: Notes/Report: CBC w/DIFF Reviewed date:05/15/2024 01:11:58 PM Interpretation: Performing Lab: Notes/Report: Reason For Referral Reason FROZEN SHOULDER ON R IGHT Diagnosis 1 Adhesive capsulitis of right shoulder (M75.01) Referral Organization [facility] Referring Provider First Name Jayjay Referring Provider Last Name Alondra Referring Provider Speciality Internal M edicine Referred Provider Specialty Physical The rapist General Notes TIARA Hagan, Elizabet Burch 09/24/2024 09:53:25 AM > Referral to [facility] [place]. Letter to pt. Clinical Notes [facility], [address] [place] [phone], , Referral Priority Routine Medications Medication SIG (Take, Route, Frequency, Duration) Notes Start Date End Date Status lamoTRIgine 25 MG 1 tablet x 14 days, then 2 tablets (for 50 mg) x 14 days Orally every morning for 28 days 06/17/2024 Active amLODIPine Besylate 10 MG 1 tablet Orall y Once a day for 30 days Active Mirtazapine 15 MG 0.5 tablet for 7.5 m g Orally at bedtime for 30 days Active lamoTRIgine 150 MG 1 tablet Orally Once a day for 30 days Active Suboxone 8-2 MG 1 film under the ton wes and allow to dissolve Sublingual three times daily for 30 days 12/31/2024 Active hydrOXYzine Pamoate 50 MG 1 capsule Oral ly twice day as needed for 30 days Active FLUoxetine HCl 40 MG 2 capsules for 80 m g Orally in the morning for 30 days Active Lisinopril 5 MG 1 tablet Orally Once a day for 30 days 06/28/2023 Active OLANZapine 20 MG 1 tablet Orally at n ight for 30 days Active Social History Tobacco Use: Social History Observation Description Date Details (start date - stop date) Current Smoker NA - NA Sex Assigned At : Social History Observation Description Sex Assigned At Male PRAPARE Question Answer Notes Date Completed/Updated: 12/01/2024 What is your current housing situation? I have housing Working on getting [employer] housing Are you worried about losing your housing? No What is the highest level of school that you have finished? High school diploma or GED What is your current work situation? Unemployed and seeking work pending disability In the past year, have you o r any family members you live with been unable to get any of the following when it was really needed? Check all that apply I do not have problems meeting my needs Has lack of transportation k ept you from medical appointments, meetings, work or from getting things needed for daily living? Yes, it has kept me from medical appointments or from getting my medications How often do you see or talk to people that you care about and feel close to? (For example: talking to friends on the phone, visiting friends or family, going to religious or club meetings) 3 to 5 times a week How stressed are you? Stress is when someone feels tense, nervous, anxious, or can\t sleep at night because their mind is troubled Quite a bit Sees therapist once a week In the past year have you sp ent more than 2 nights in a row in a assisted, longterm, long term center, or juvenile correctional facility? No Do you feel physically and emotionally safe where you currently live? No In the past year, have you b een afraid of your partner or ex-partner? No PRAPARE Score: 9 Tobacco Control (Standard) Question Answer Notes Tobacco use: Current smoker Problems Problem Type SNOMED Code ICD Code Onset Dates Problem Status W/U Status Risk Notes Problem Tobacco user (548157855) Nicotine dependence, unspecified, uncomplicated (F17.200) Active confirmed Problem Schizoaffective disorder, bipolar type (95135954) Schizoaffective disorder, bipolar type (F25.0) 06/01/20 23 Active confirmed Problem Anxiety disorder (580064438) Anxiety disorder, unspecified (F41.9) Active confirmed Problem Depression (671464581) Depression (F32.9) Active confirmed Problem 27239431 Mood disorder (F39) 10/18/19 22 Active confirmed Problem Insomnia due to mental disorder (15423948) Insomnia due to mental disorder (F51.05) 02/06/20 24 Active confirmed Problem Obstructive sleep apnea syndrome (82392788) Sleep apnea in adult (G47.33) Active confirmed Problem 171703737 Chronic hepatiti s C without hepatic coma (B18.2) 12/15/19 22 Active confirmed Problem Adjustment disorder (16866614) Trauma and stressor-related disorder (F43.9) 06/01/20 23 Active confirmed Problem Tobacco use (472241992) Tobacco use disorder (F17.200) 10/18/19 22 Active confirmed Problem 86621743 Hypertension, unspecified type (I10) 10/18/19 Active confirmed Problem Opioid use disorder (8305715925) Opioid use disorder (F11.99) 10/18/19 Active confirmed Problem Benign prostatic hypertrophy with outflow obstruction (044284603) BPH loc w urin obs/LUTS (N40.1) Active confirmed Vital Signs Heart Rate 60 /min 12/31/2024 Temperature 98.2 degrees Fahrenheit 08/26/2024 Respiratory Rate 16 /min 12/31/2024 Oximetry 96 % 12/31/2024 Blood pressure diastolic 82 mm Hg 12/31/2024 Height 66 in 12/31/2024 Blood pressure systolic 152 mm Hg 12/31/2024 Weight 143 lb 0 oz lbs 12/31/2024 BMI 23.08 kg/m2 12/31/2024 Encounters Encounter Location Date Provider Diagnosis [facility] [address] [place] [address] 03/31/2024 Jayjay Cantu Hypertension, unspecified type I10 [facility] [address] [place] [address] 08/14/2024 Jayjay Cantu [address] [place] [address] 08/15/2024 Jayjay Cantu [facility] [address] [place] [address] 09/04/2024 Jayjay Cantu [address] [place] [address] 12/04/2024 Jayjay Cantu [address] [place] [address] 04/09/2024 Donal Pan Opioid use disorder F11.99 and Schizoaffective disorder, bipolar type F25.0 [address] [place] [address] 03/13/[address] [place] [address] 01/30/[address] [place] [address] 02/27/[address] [place] [address] 04/09/[address] [place] [address] 09/03/2024 Jayjay Cantu Adhesive capsulitis of right shoulder M75.01 ; Hypertension, unspecified type I10 ; Sleep apnea in adult G47.33 ; Screening for diabetes mellitus Z13.1 ; Nicotine dependence, unspecified, uncomplicated F17.200 and Frequent urination R35.[address] [place] [address] 09/29/2024 Jayjay Cantu Opioid use disorder F11.99 ; Hypertension, unspecified type I10 and Nicotine dependence, unspecified, uncomplicated F17.200 [address] [place] [address] 05/28/2024 Yehuda Lema Opioid use disorder F11.99 and Tobacco use disorder F17.200 [address] [place] [address] 03/26/2024 Yehuda Lema Nicotine dependence, unspecified, uncomplicated F17.200 and Opioid use disorder F11.99 [facility] [place] [address] 05/22/2024 Kaylyn Short Adult general medica l examination Z00.00 and Nicotine dependence, unspecified, uncomplicated F17.200 [facility] [place] [address] 03/13/2024 Kaylyn Short Adult general medica l exam Z00.00 ; Nicotine dependence, unspecified, uncomplicated F17.200 and Opioid use disorder F11.[address] [address] 04/08/2024 Kyria Pan Schizoaffective disorder, bipolar type F25.0 ; Opioid use disorder F11.99 ; Anxiety disorder, unspecified F41.9 and Insomnia due to mental disorder F51.[address] [address] 03/05/2024 Kyria Pan Schizoaffective disorder, bipolar type F25.0 ; Opioid use disorder F11.99 ; Anxiety disorder, unspecified F41.9 and Insomnia due to mental disorder F51.[address] [address] 02/06/2024 Kyria Pan Schizoaffective disorder, bipolar type F25.0 ; Opioid use disorder F11.99 ; Anxiety disorder, unspecified F41.9 and Insomnia due to mental disorder F51.[address] [address] 12/04/2024 Kyria Pan Schizoaffective disorder, bipolar type F25.0 ; Opioid use disorder F11.99 ; Anxiety disorder, unspecified F41.9 and Insomnia due to mental disorder F51.[address] [address] 09/26/2024 Kyria Pan Schizoaffective disorder, bipolar type F25.0 ; Opioid use disorder F11.99 ; Anxiety disorder, unspecified F41.9 and Insomnia due to mental disorder F51.05 [facility] [address] [place] [address] 05/08/2024 Kyjolly Mendezanan Schizoaffective disorder, bipolar type F25.0 ; Opioid use disorder F11.99 ; Anxiety disorder, unspecified F41.9 and Insomnia due to mental disorder F51.[address] [address] 06/17/2024 Kyrikristina MendezPan Schizoaffective disorder, bipolar type F25.0 ; Opioid use disorder F11.99 ; Anxiety disorder, unspecified F41.9 and Insomnia due to mental disorder F51.[address] [address] 07/31/2024 Kyria Pan Schizoaffective disorder, bipolar type F25.0 ; Opioid use disorder F11.99 ; Anxiety disorder, unspecified F41.9 and Insomnia due to mental disorder F51.[address] [address] 08/13/2024 Caty Szlufik Opioid use disorder F11.99 and Nicotine dependence, unspecified, uncomplicated F17.[address] [address] 08/26/2024 Caty Szlufik Opioid use disorder F11.99 and Nicotine dependence, unspecified, uncomplicated F17.[address] [address] 06/25/2024 Caty Szlufik Opioid use disorder F11.99 and Nicotine dependence, unspecified, uncomplicated F17.[address] [address] 07/28/2024 Caty Szlufik Opioid use disorder F11.99 and Nicotine dependence, unspecified, uncomplicated F17.[address] [address] 06/11/2024 Caty Szlufik Opioid use disorder F11.99 and Nicotine dependence, unspecified, uncomplicated F17.[address] [address] 10/31/2024 Yehuda Anthonypravin Opioid use disorder F11.[address] [address] 12/03/2024 Caty Szlufik Opioid use disorder F11.[address] [address] 12/31/2024 Caty Szlufik Opioid use disorder F11.[address] [address] 02/27/2024 Caty Szlufik Opioid use disorder F11.99 and Nicotine dependence, unspecified, uncomplicated F17.[address] [address] 01/30/2024 Caty Szlufik Opioid use disorder F11.99 and Nicotine dependence, unspecified, uncomplicated F17.[address] [address] 04/09/2024 Caty Szlufik Opioid use disorder F11.99 and Nicotine dependence, unspecified, uncomplicated F17.[address] [address] 04/30/2024 Caty Szlufik Opioid use disorder F11.99 and Nicotine dependence, unspecified, uncomplicated F17.200 Assessments Encounter Date Diagnosis (ICD Code) Assessment Notes Treatment Notes Treatment Clinical Notes Section Notes 01/30/2024 Nicotine dependence, unspecified, uncomplicated (ICD-10 - F17.200) 01/30/2024 Opioid use disorder (ICD-10 - F11.99) 02/06/2024 Schizoaffective disorder, bipolar type (ICD-10 - F25.0) 02/06/2024 Opioid use disorder (ICD-10 - F11.99) Continue suboxone as currently prescribed 03/26/2024 Nicotine dependence, unspecified, uncomplicated (ICD-10 - F17.200) 03/26/2024 Opioid use disorder (ICD-10 - F11.99) 04/09/2024 Nicotine dependence, unspecified, uncomplicated (ICD-10 - F17.200) 04/09/2024 Opioid use disorder (ICD-10 - F11.99) 04/09/2024 Opioid use disorder (ICD-10 - F11.99) 06/11/2024 Nicotine dependence, unspecified, uncomplicated (ICD-10 - F17.200) 06/11/2024 Opioid use disorder (ICD-10 - F11.99) 06/17/2024 Schizoaffective disorder, bipolar type (ICD-10 - F25.0) 07/28/2024 Nicotine dependence, unspecified, uncomplicated (ICD-10 - F17.200) 07/28/2024 Opioid use disorder (ICD-10 - F11.99) 08/13/2024 Nicotine dependence, unspecified, uncomplicated (ICD-10 - F17.200) 08/13/2024 Opioid use disorder (ICD-10 - F11.99) 08/26/2024 Nicotine dependence, unspecified, uncomplicated (ICD-10 - F17.200) 08/26/2024 Opioid use disorder (ICD-10 - F11.99) 09/26/2024 Schizoaffective disorder, bipolar type (ICD-10 - F25.0) 03/13/2024 Adult general medical exam (ICD-10 - Z00.00) 09/29/2024 Hypertension, unspecified type (ICD-10 - I10) 09/29/2024 Opioid use disorder (ICD-10 - F11.99) 04/08/2024 Schizoaffective disorder, bipolar type (ICD-10 - F25.0) 03/31/2024 Hypertension, unspecified type (ICD-10 - I10) 03/05/2024 Schizoaffective disorder, bipolar type (ICD-10 - F25.0) 02/27/2024 Nicotine dependence, unspecified, uncomplicated (ICD-10 - F17.200) 02/27/2024 Opioid use disorder (ICD-10 - F11.99) 12/31/2024 Opioid use disorder (ICD-10 - F11.99) 12/04/2024 Schizoaffective disorder, bipolar type (ICD-10 - F25.0) 12/03/2024 Opioid use disorder (ICD-10 - F11.99) 10/31/2024 Opioid use disorder (ICD-10 - F11.99) 09/03/2024 Adhesive capsulitis of right shoulder (ICD-10 - M75.01) 09/03/2024 Hypertension, unspecified type (ICD-10 - I10) 07/31/2024 Schizoaffective disorder, bipolar type (ICD-10 - F25.0) 06/25/2024 Nicotine dependence, unspecified, uncomplicated (ICD-10 - F17.200) 06/25/2024 Opioid use disorder (ICD-10 - F11.99) 05/22/2024 Adult general medical examination (ICD-10 - Z00.00) 05/08/2024 Schizoaffective disorder, bipolar type (ICD-10 - F25.0) 04/30/2024 Nicotine dependence, unspecified, uncomplicated (ICD-10 - F17.200) 04/30/2024 Opioid use disorder (ICD-10 - F11.99) 05/28/2024 Opioid use disorder (ICD-10 - F11.99) 05/22/2024 Nicotine dependence, unspecified, uncomplicated (ICD-10 - F17.200) 07/31/2024 Opioid use disorder (ICD-10 - F11.99) Continue suboxone as currently prescribed 05/08/2024 Opioid use disorder (ICD-10 - F11.99) Continue suboxone as currently prescribed 05/28/2024 Tobacco use disorder (ICD-10 - F17.200) 09/03/2024 Sleep apnea in adult (ICD-10 - G47.33) 12/04/2024 Opioid use disorder (ICD-10 - F11.99) Continue suboxone as currently prescribed 06/17/2024 Opioid use disorder (ICD-10 - F11.99) Continue suboxone as currently prescribed 04/08/2024 Opioid use disorder (ICD-10 - F11.99) Continue suboxone as currently prescribed 03/05/2024 Opioid use disorder (ICD-10 - F11.99) Continue suboxone as currently prescribed 09/26/2024 Opioid use disorder (ICD-10 - F11.99) Continue suboxone as currently prescribed 09/29/2024 Nicotine dependence, unspecified, uncomplicated (ICD-10 - F17.200) 04/09/2024 Schizoaffective disorder, bipolar type (ICD-10 - F25.0) 03/13/2024 Nicotine dependence, unspecified, uncomplicated (ICD-10 - F17.200) 02/06/2024 Anxiety disorder, unspecified (ICD-10 - F41.9) 02/06/2024 Insomnia due to mental disorder (ICD-10 - F51.05) History: [facility] assisted Fall 2022 for stealing incident. Residential treatment 06/06/23. Taking Suboxone for OUD. Inpatient psychiatric stay with [facility] in 2017. Denies any previous SA/SIB. Reports hx of AVH/paranoia outside of substance use along with possible manic episodes. Hx of paranoid thoughts include aliens trying to abduct him or following him around. 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 Currently, living in group setting, single, applying for social security benefits and looking for work. Presents in female attire/clothing, prefers he/him pronouns denies identifying with gender dysphoria. Preferred name Anastacio. [address]. Today's visit: Patient is a 58-year-old male (who identifies as male) presents for a psychiatric f/u over phone. Previously seen 09/26/23 and during this appt was increased on Prozac to 40 mg and continued on hydroxyzine to BID, Zyprexa 15 mg. Pt today continues to score high on depression scale. He reports feeling more motivated when taking Prozac (does not report activation or manic sx when taking) and that he has improvement in some moods when taking. He minimizes some of his depression, reporting it's contributed by his living arrangement or that he's a depressed person . Depression also contributed by loneliness. Patient would like to continue medications as ordered at this time, Will consider during future appointments transitioning to another medication if increase(s) of Prozac do not help lift depressive sx. Feels Zyprexa dose is adequate, AH 1-2x a week with some paranoia still but is not consistent - does not wish to increase or change. He denies any irregular muscle movements or any other side effects. Continues to take hydroxyzine as needed for anxiety, he reports taking up to 2x a day and feels it's beneficial. No acute safety concerns at the time of this appt. He was provided an opportunity to ask questions. He is encouraged to continue following up with therapist and drug court. May self-administer medications or be administered own oral medications per [facility] protocols. Provided informed consent with understanding of side effects, adverse effects, risks and benefits as well as alternative treatments as previously discussed and with the above recommended medications & other aspects of the treatment program. Agrees to return sooner if symptoms worsen or suicidal or homicidal ideations occur. 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 Residential treatment 06/06/23. Taking Suboxone for OUD. Inpatient psychiatric stay with [facility] in 2017. Denies any previous SA/SIB. Reports hx of AVH/paranoia outside of substance use along with possible manic episodes. Hx of paranoid thoughts include aliens trying to abduct him or following him around. 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 Currently, living in group setting, single, applying for social security benefits and looking for work. Presents in female attire/clothing, prefers he/him pronouns denies identifying with gender dysphoria. Preferred name Anastacio. Moved to [address]. Today's visit: Patient is a 59-year-old male (who identifies as male) presents for a psychiatric f/u over phone and is located in [place]. Previously seen on 04/08/2024 and during this appt was continued on Olanzapine 20 mg, and Prozac 60 mg, hydroxyzine 50 mg BID as needed and Remeron 7.5 mg. Previous PHQ-9 score of 15, today is 22. Reporting significant depressive symptoms in the setting of recent stressful housing changes. Denies SI/HI or AVH currently but does endorse ongoing paranoid delusions. Concentration poor but likely exacerbated by poor sleep. Patient is taking Prozac 60mg daily, agrees to increase to 80mg daily to target depressive symptoms. Will continue other medications as prescribed. Patient connected with housing organizations and on waitlist for [facility]. Encouraged continued engagement by attending AA meetings to aid in sobriety. Will continue to monitor for hypomania/sheela as well as paranoia. Pt encouraged to follow up with PCP regarding elevated glucose. He denies any irregular muscle movements or any other side effects, unable to complete AIMS virtually. No acute safety concerns at the time of this appt. He was provided an opportunity to ask questions. He is encouraged to continue following up with therapist and drug court. May self-administer medications or be administered own oral medications per [facility] protocols. Provided informed consent with understanding of side effects, adverse effects, risks and benefits as well as alternative treatments as previously discussed and with the above recommended medications & other aspects of the treatment program. Agrees to return sooner if symptoms worsen or suicidal or homicidal ideations occur. 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 Residential treatment 06/06/23. Taking Suboxone for OUD. Inpatient psychiatric stay with [facility] in 2017. Denies any previous SA/SIB. Reports hx of AVH/paranoia outside of substance use along with possible manic episodes. Hx of paranoid thoughts include aliens trying to abduct him or following him around. 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 Currently, living in group setting, single, applying for social security benefits and looking for work. Presents in female attire/clothing, prefers he/him pronouns denies identifying with gender dysphoria. Preferred name Anastacio. Moved to [address]. Today's visit: Patient is a 59-year-old male (who identifies as male) presents for a psychiatric f/u over phone and is located in [place]. Previously seen on 06/17/2024 and during this appt was reduced on fluoxetine from 80 mg to 60 mg and started on Lamotrigine. Previous PHQ-9 score of 21, today is 20. Continues to struggle with severe depression, anxiety, paranoia, and insomnia in the setting of homelessness. He was recently approved for housing which will hopefully lead to some improvement in his symptoms. He is taking his medications as prescribed, including Suboxone for sobriety maintenance, He is taking medications as currently prescribed and reports he is tolerating these medications well with no significant side effects. Will increasing Lamictal to 150mg to target mood sx further, may consider decrease fluoxetine again. He denies any irregular muscle movements or any other side effects, unable to complete AIMS virtually. No acute safety concerns at the time of this appt. He was provided an opportunity to ask questions. He is encouraged to continue following up with therapist and drug court. May self-administer medications or be administered own oral medications per [facility] protocols. Provided informed consent with understanding of side effects, adverse effects, risks and benefits as well as alternative treatments as previously discussed and with the above recommended medications & other aspects of the treatment program. Agrees to return sooner if symptoms worsen or suicidal or homicidal ideations occur. 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 Patient continues to have depression that is worsening in context of mother's . Continues to report anxiety; agreeable to increasing fluoxetine to 80 mg. Wishes to continue other medications as prescribed. He is encouraged to maintain sobriety and attend classes/groups. Encourage ongoing indvidiaul therapy. Denies any irregular muscle movements or any other side effects, unable to complete AIMS virtually. No acute safety concerns at the time of this appt. He was provided an opportunity to ask questions. May self-administer medications or be administered own oral medications per [facility] protocols. Provided informed consent with understanding of side effects, adverse effects, risks and benefits as well as alternative treatments as previously discussed and with the above recommended medications & other aspects of the treatment program. Agrees to return sooner if symptoms worsen or suicidal or homicidal ideations occur. 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 Residential treatment 06/06/23. Taking Suboxone for OUD. Inpatient psychiatric stay with [facility] in 2017. Denies any previous SA/SIB. Reports hx of AVH/paranoia outside of substance use along with possible manic episodes. Hx of paranoid thoughts include aliens trying to abduct him or following him around. 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 Currently, living in group setting, single, applying for social security benefits and looking for work. Presents in female attire/clothing, prefers he/him pronouns denies identifying with gender dysphoria. Preferred name Anastacio. Moved to [address] Today's visit: Patient is a 58-year-old male (who identifies as male) presents for a psychiatric f/u over phone. Previously seen on 02/06/2024 and during this appt was increased on Prozac to 60 mg, started on Remeron 7.5 and continued on other psychotropic medications as previously prescribed. Previous PHQ-9 score of 22, today is 22. Patient continues to experience AH and paranoia, patient is open to trialing an increase in Zyprexa to target these sx. Patient would like to continue other medications at current dosages. He denies any irregular muscle movements or any other side effects, unable to complete AIMS virtually. No acute safety concerns at the time of this appt. He was provided an opportunity to ask questions. He is encouraged to continue following up with therapist and drug court. May self-administer medications or be administered own oral medications per [facility] protocols. Provided informed consent with understanding of side effects, adverse effects, risks and benefits as well as alternative treatments as previously discussed and with the above recommended medications & other aspects of the treatment program. Agrees to return sooner if symptoms worsen or suicidal or homicidal ideations occur. 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 Reports obtaining housing today which is affecting his mood and depression positively. Reports paranoia that has been consistent between appointments, he is open to medication adjustments next appointment. Continues to report Lamictal has helpful, may decrease fluoxetine in upcoming appointments. Wishes to continue medications as prescribed, appears to have adequate insight into his symptoms and illness. Is motivated for treatment. He denies any irregular muscle movements or any other side effects, unable to complete AIMS virtually. No acute safety concerns at the time of this appt. He was provided an opportunity to ask questions. He is encouraged to continue following up with therapist and drug court. May self-administer medications or be administered own oral medications per [facility] protocols. Provided informed consent with understanding of side effects, adverse effects, risks and benefits as well as alternative treatments as previously discussed and with the above recommended medications & other aspects of the treatment program. Agrees to return sooner if symptoms worsen or suicidal or homicidal ideations occur. 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 Residential treatment 06/06/23. Taking Suboxone for OUD. Inpatient psychiatric stay with [facility] in 2017. Denies any previous SA/SIB. Reports hx of AVH/paranoia outside of substance use along with possible manic episodes. Hx of paranoid thoughts include aliens trying to abduct him or following him around. 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 Currently, living in group setting, single, applying for social security benefits and looking for work. Presents in female attire/clothing, prefers he/him pronouns denies identifying with gender dysphoria. Preferred name Anastacio. Moved to [address]. Today's visit: Patient is a 59-year-old male (who identifies as male) presents for a psychiatric f/u over phone and is located in [place]. Previously seen on 03/05/2024 and during this appt was increased on Zyprexa to 20 mg and continued on other psychotropic medications. Previous PHQ-9 score of 22, today is 15. He recently relapsed on opioids but is currently sober with plans to attend AA meetings regularly. Continued abstinence and engagement with recovery supports is encouraged. Reports improvement in mood with the recent Zyprexa dose increase. He will continue on the current dose as well as Prozac, with treatment goal of improved adherence. He continues to utilize Suboxone for treatment. Lab work ordered for medication monitoring and for patient's reported symptoms including fatigue, feeling cold, headaches and nocturia. He is advised to follow up with his PCP regarding the recent hypertensive episode. He denies any irregular muscle movements or any other side effects, unable to complete AIMS virtually. No acute safety concerns at the time of this appt. He was provided an opportunity to ask questions. He is encouraged to continue following up with therapist and drug court. May self-administer medications or be administered own oral medications per [facility] protocols. Provided informed consent with understanding of side effects, adverse effects, risks and benefits as well as alternative treatments as previously discussed and with the above recommended medications & other aspects of the treatment program. Agrees to return sooner if symptoms worsen or suicidal or homicidal ideations occur. 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 Residential treatment 06/06/23. Taking Suboxone for OUD. Inpatient psychiatric stay with [facility] in 2017. Denies any previous SA/SIB. Reports hx of AVH/paranoia outside of substance use along with possible manic episodes. Hx of paranoid thoughts include aliens trying to abduct him or following him around. 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 Currently, living in group setting, single, applying for social security benefits and looking for work. Presents in female attire/clothing, prefers he/him pronouns denies identifying with gender dysphoria. Preferred name Anastcaio. Moved to phase [address]. Today's visit: Patient is a 59-year-old male (who identifies as male) presents for a psychiatric f/u over phone and is located in [place]. Previously seen on 05/08/2024 and during this appt was increased on Prozac to 80 mg, continued on Olanzapine, hydroxyzine and Remeron as previously prescribed. Previous PHQ-9 score of 22, today is 21. Reporting increased irritability and anger outbursts in the setting of recent sobriety and unstable housing situation. Likely multifactorial, with situational stressors playing a significant role; also increase fluoxetine last appt which could be activating his anxiety/irritabili ty although notes possible some improvement since increasing (PHQ-9 does not indicate change). Will decrease fluoxetine to 60 mg and trial Lamictal for mood stability and irritability. Patient is hopeful that symptoms will improve with stable housing. Encouraging continued sobriety and engagement with drug counseling. Will continue to monitor for hypomania/sheela as well as paranoia. He denies any irregular muscle movements or any other side effects, unable to complete AIMS virtually. No acute safety concerns at the time of this appt. He was provided an opportunity to ask questions. He is encouraged to continue following up with therapist and drug court. May self-administer medications or be administered own oral medications per [facility] protocols. Provided informed consent with understanding of side effects, adverse effects, risks and benefits as well as alternative treatments as previously discussed and with the above recommended medications & other aspects of the treatment program. Agrees to return sooner if symptoms worsen or suicidal or homicidal ideations occur. 09/03/2024 Frequent urination (ICD-10 - R35.0) 10/31/2024 Other Discussed medication side effects, adverse effects, risks, benefits, as well as interactions. Encouraged non-use of opioids. Has naloxone. Recommended participation in recovery groups/counseling services. Agrees to contact office with questions or concerns. Patient may self-administe r their own medications or may self-administe r their own oral medications per [facility] Protocol. 12/31/2024 Other Patient agrees to take medication as prescribed. Discussed medication side effects, adverse effects, risks, benefits, as well as interactions. Encouraged non-use of opioids and other illicit substances. Has naloxone. Discontinuing buprenorphine increases the risk of overdose upon return to illicit opioid use. Use of alcohol or benzodiazepines with buprenorphine increases the risk of overdose and . Education provided about safe storage of medications. Encouraged participation in recovery groups/counseling services. Contact office with questions or concerns. Patient may self-administe r their own medications or may self-administe r their own oral medications per [facility] Protocol. 12/03/2024 Other BP elevated during today's visit. Patient reports forgetting to take his BP med today. Will take when he gets home. Patient agrees to take medication as prescribed. Discussed medication side effects, adverse effects, risks, benefits, as well as interactions. Encouraged non-use of opioids and other illicit substances. Has naloxone. Discontinuing buprenorphine increases the risk of overdose upon return to illicit opioid use. Use of alcohol or benzodiazepines with buprenorphine increases the risk of overdose and . Education provided about safe storage of medications. Encouraged participation in recovery groups/counseling services. Contact office with questions or concerns. Patient may self-administe r their own medications or may self-administe r their own oral medications per [facility] Protocol. 01/30/2024 Other Provided case management services to address social determinants of health needs and reduce barriers to health care services. 01/30/2024 Other Client agrees to take medication as prescribed. Discussed medication side effects, adverse effects, risks, benefits, as well as interactions. Encouraged non-use of opioids and other illicit substances. Has naloxone. Understand that discontinuing buprenorphine increases the risk of overdose upon return to illicit opioid use. Know that that use of alcohol or benzodiazepines with buprenorphine increases the risk of overdose and . Education provided about safe storage of medications. Encourage participation in recovery groups/counseling services. Contact office with questions or concerns. 05/22/2024 Other Continue treatment as recommended by [facility] staff. Encouraged patient to obtain routine medical care with patient's own primary care provider or establish as a patient at [facility] if no current primary care provider. 02/27/2024 Other Provided case management services to address social determinants of health needs and reduce barriers to health care services. 02/27/2024 Other Client agrees to take medication as prescribed. Discussed medication side effects, adverse effects, risks, benefits, as well as interactions. Encouraged non-use of opioids and other illicit substances. Has naloxone. Understand that discontinuing buprenorphine increases the risk of overdose upon return to illicit opioid use. Know that that use of alcohol or benzodiazepines with buprenorphine increases the risk of overdose and . Education provided about safe storage of medications. Encourage participation in recovery groups/counseling services. Contact office with questions or concerns. 03/13/2024 Other Provided case management services to address social determinants of health needs and reduce barriers to health care services. 03/13/2024 Other Continue treatment as recommended by [facility] staff. Encouraged patient to obtain routine medical care with patient's own primary care provider or establish as a patient at [facility] if no current primary care provider. 05/28/2024 Other Patient agrees to take medication as prescribed. Discussed medication side effects, adverse effects, risks, benefits, as well as interactions. Encouraged non-use of opioids. Has naloxone. Recommended participation in recovery groups and/or counseling services. May contact office with questions or concerns. 08/26/2024 Other Patient agrees to take medication as prescribed. Discussed medication side effects, adverse effects, risks, benefits, as well as interactions. Encouraged non-use of opioids and other illicit substances. Has naloxone. Discontinuing buprenorphine increases the risk of overdose upon return to illicit opioid use. Use of alcohol or benzodiazepines with buprenorphine increases the risk of overdose and . Education provided about safe storage of medications. Encouraged participation in recovery groups/counseling services. Contact office with questions or concerns. 03/26/2024 Other Discussed medication side effects, adverse effects, risks, benefits, as well as interactions. Encouraged non-use of opioids. Has naloxone. Recommended participation in recovery groups/counseling services. Agrees to contact office with questions or concerns. 04/09/2024 Other Client agrees to take medication as prescribed. Discussed medication side effects, adverse effects, risks, benefits, as well as interactions. Encouraged non-use of opioids and other illicit substances. Has naloxone. Understand that discontinuing buprenorphine increases the risk of overdose upon return to illicit opioid use. Know that that use of alcohol or benzodiazepines with buprenorphine increases the risk of overdose and . Education provided about safe storage of medications. Encourage participation in recovery groups/counseling services. Patient understands that all treating providers/physicia ns should be informed of buprenorphine use as part of a Medication Assisted Recovery program. Contact office with questions or concerns. 04/09/2024 Other Provided case management services to address social determinants of health needs and reduce barriers to health care services. 06/11/2024 Other Client agrees to take medication as prescribed. Discussed medication side effects, adverse effects, risks, benefits, as well as interactions. Encouraged non-use of opioids and other illicit substances. Has naloxone. Discontinuing buprenorphine increases the risk of overdose upon return to illicit opioid use. Use of alcohol or benzodiazepines with buprenorphine increases the risk of overdose and . Education provided about safe storage of medications. Encouraged participation in recovery groups/counseling services. Contact office with questions or concerns. 08/13/2024 Other Patient agrees to take medication as prescribed. Discussed medication side effects, adverse effects, risks, benefits, as well as interactions. Encouraged non-use of opioids and other illicit substances. Has naloxone. Discontinuing buprenorphine increases the risk of overdose upon return to illicit opioid use. Use of alcohol or benzodiazepines with buprenorphine increases the risk of overdose and . Education provided about safe storage of medications. Encouraged participation in recovery groups/counseling services. Contact office with questions or concerns. 04/30/2024 Other Client agrees to take medication as prescribed. Discussed medication side effects, adverse effects, risks, benefits, as well as interactions. Encouraged non-use of opioids and other illicit substances. Has naloxone. Understand that discontinuing buprenorphine increases the risk of overdose upon return to illicit opioid use. Know that that use of alcohol or benzodiazepines with buprenorphine increases the risk of overdose and . Education provided about safe storage of medications. Encourage participation in recovery groups/counseling services. Patient understands that all treating providers/physicia ns should be informed of buprenorphine use as part of a Medication Assisted Recovery program. Contact office with questions or concerns. 06/25/2024 Other Client agrees to take medication as prescribed. Discussed medication side effects, adverse effects, risks, benefits, as well as interactions. Encouraged non-use of opioids and other illicit substances. Has naloxone. Discontinuing buprenorphine increases the risk of overdose upon return to illicit opioid use. Use of alcohol or benzodiazepines with buprenorphine increases the risk of overdose and . Education provided about safe storage of medications. Encouraged participation in recovery groups/counseling services. Contact office with questions or concerns. 09/03/2024 Other LABS REVIEWED FROM . 07/28/2024 Other Patient agrees to take medication as prescribed. Discussed medication side effects, adverse effects, risks, benefits, as well as interactions. Encouraged non-use of opioids and other illicit substances. Has naloxone. Discontinuing buprenorphine increases the risk of overdose upon return to illicit opioid use. Use of alcohol or benzodiazepines with buprenorphine increases the risk of overdose and . Education provided about safe storage of medications. Encouraged participation in recovery groups/counseling services. Contact office with questions or concerns. 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
--- OUTSIDE RECORDS SUMMARY | 2025-01-13 13:48 | XMS_ITS | CONTINUITY OF CARE DOCUMENT ---
Author Name nikolas connor Address Unknown Organization [facility] Address [address] [place] [address] Phone [phone] Care Team Providers Care Scrum Project Manager Name Role Phone Ayden JIMENEZ, Carmen Unavailable RHYS GAFFNEY MD Unavailable [phone] RHYS GAFFNEY MD Unavailable PROBLEMS Condition Status Date Provider Notes Chest pain- normal echo and stress test active Carmen Hensley MD HTN essential active Carmen Henslye MD Tobacco abuse active Carmen Hensley MD FAMILY HISTORY OF HEART DISEASE active Rocael Hensley MD Alcohol abuse active Carmen Hensley MD ENCOUNTERS Date Type Provider Location Encounter Diag nosis - In-person encounter Office Visit Carmen Hensley MD [place] [facility] Chest pain- normal echo and stress test - In-person encounter Office Visit Carmen Hensley MD [place] [facility] Chest pain- normal echo and stress testHTN essentialTobacco abuseFAMILY HISTORY OF HEART DISEASEAlcohol abuse VITAL SIGNS Date Observation Value Provider blood pressure, diastolic 108 mm[Hg] Nelly Stevenson blood pressure, systolic 172 mm[Hg] Evangelina Stevenson pulse rate 71 /min Aparna schneider oxygen saturation, oximetry 98 % Aparna Stevenson respiratory rate E&M 18 /min Justine Stevenson Body Mass Index (Ratio) 27.79 kg/m2 Marjorie Stevenson weight E&M 167 [lb_av] Aparna schneider blood pressure, diastolic 102 mm[Hg] Nelly Stevenson blood pressure, systolic 161 mm[Hg] Evangelina Stevenson pulse rate 73 /min Aparna schneider oxygen saturation, oximetry 98 % Aparna Stevenson respiratory rate E&M 18 /min Justine Stevenson temperature site oral Aparna donahue Body Mass Index (Ratio) 27.29 kg/m2 Marjorie Stevenson weight E&M 164 [lb_av] Aparna schneider height E&M 65 [in_i] Aparna schneider ALLERGIES No Known Drug Allergies HISTORY OF MEDICATION USE Medication Status Instructions Dates Provider Indications Com ments AMLODIPINE BESYLATE 5 MG ORAL TABLET active po daily 9 Carmen Hensley MD NICOTINE TRANSDERMAL SYSTEM active 21 mg as directed Aparna Stevenson MELATONIN TABLET active 5 mg 1-2 tabs a t bed time Aparna Stevenson RISPERDAL 2 MG ORAL TABLET active once daily Aparna Stevenson HYDROXYZINE PAMOATE 50 MG ORAL CAPSULE active 3 times daily Aparna Stevenson VITAMIN D (ERGOCALCIFEROL) 19930 UNIT ORAL CAPSULE active once a week Aparna Stevenson CARBAMAZEPINE ER 400 MG ORAL TABLET EXTENDED RELEASE 12 HOUR active twice daily Aparna Stevenson LOSARTAN POTASSIUM-HCTZ 100-25 MG ORAL TABLET active po daily 9 Carmen Hensley MD SERTRALINE HCL 50 MG ORAL TABLET active once daily Aparna Stevenson SOCIAL HISTORY Date Observation Value Provider social history reviewed E&M revi ewed - no changes required Carmen Hensley MD smoking/tobacco cess ation, patient education and counseling yes Aparna Stevenson smoking history, tot al pack/day 2 cigs Aparna Stevenson cigarette use yes Aparna keating smoking status Current every day smoker Elton Stevenson social history reviewed E&M revi ewed - no changes required Carmen Hensley MD cigarette use yes Aparna keating smoking status Current every day smoker Elton Stevenson smoking/tobacco cess ation, patient education and counseling yes Aparna Stevenson FAMILY HISTORY Family Member Condition Mother Family History of Co ronary Artery Disease: Mother Family History of Hy pertension: Mother Family History of Di abetes: INSURANCE PROVIDERS Payer name Policy type / Coverage type [place] [employer] ID [employer] MEDICAID Medicaid [id number] TREATMENT PLAN Date Name Performer Cardiology Carmen Hensley MD Cardiology Carmen Hensley MD Cardiology Carmen Hensley MD Cardiology Carmen Hensley MD Cardiology Carmen Hensley MD Cardiology Carmen Hensley MD Cardiology Carmen Hensley MD Cardiology Carmen Hensley MD Cardiology Carmen Hensley MD HISTORY OF PROCEDURES Procedure Date Procedure Name Provider Procedure Notes S tatus SNOMED-CT: 50952943 Physical Exam, Performed: Pulse Exam of Foot Carmen Hensley MD completed SNOMED-CT: 485573059 Smoking Cessation Counseling Carmen Hensley MD completed SNOMED-CT: 281219054 492666 Current Medications Documented Carmen Hensley MD completed Cardiolite, 2 units Carmen Hensley MD completed SPECT Images Carmen Hensley MD complet ed Stress EKG Carmen Hensley MD completed SNOMED-CT: 275630865 Smoking Cessation Counseling Carmen Hensley MD completed SNOMED-CT: 57783335 Physical Exam, Performed: Pulse Exam of Foot Carmen Hensley MD completed EKG Carmen Hensley MD completed SNOMED-CT: 146146025 378804 Current Medications Documented Carmen Hensley MD completed
--- NOTE | 2025-01-13 16:19 | ED.URI ---
HPI - URI/Sore Throat General Chief Complaint: Upper Respiratory Infection Stated Complaint: sent to ED for covid test Time Seen by Provider: 01/13/25 16:03 Source: patient Mode of arrival: ambulatory Limitations: no limitations History of Present Illness HPI Narrative: Patient is a 59-year-old male who presents the ED requesting COVID testing. Patient reports he developed a sore throat and. Denies fevers, cough, congestion, shortness breath, chest pain. 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 Patient denies known exposure. Denies difficulty breathing or swelling. Related Data Home Medications ?Medication ?Instructions ?Recorded ?Confirmed ?Last Taken ?Type amlodipine 10 mg tablet (Norvasc) 10 mg PO DAILY 03/12/24 03/12/24 Unknown History Allergies Allergy/AdvReac Type Severity Reaction Status Date / Time No Known Allergies Allergy Verified 03/12/24 12:10 Review of Systems Review of Systems: All systems reviewed & are unremarkable except as noted in HPI. All systems reviewed & are unremarkable except as noted in HPI and below PMFSH Past Medical History Medical History Hepatitis C HTN (hypertension) Tobacco use Exam Narrative: GENERAL: Mildly disheveled appearing, thin, non-toxic, in no acute distress. HEAD: Normocephalic, atraumatic. ENT: Trace posterior pharynx erythema. No tonsillar hypertrophy or exudate. Uvula midline and nonedematous. RESPIRATORY: Airway patent, respirations nonlabored. Clear to auscultation bilaterally, no rales, rhonchi, wheezing. CARDIOVASCULAR: Regular rate and rhythm MUSCULOSKELETAL: Moves all extremities. No gross deformities. SKIN: Warm, dry, normal color. NEURO: A&O X3. Speech clear. PSYCHIATRIC: Appropriate mood and affect. Normal interaction. Course Vital Signs Vital signs: Vital Signs Temperature 97.8 F 01/13/25 13:46 Pulse Rate 68 01/13/25 13:46 Respiratory Rate 16 01/13/25 13:46 Blood Pressure 142/73 H 01/13/25 13:46 Pulse Oximetry 98 01/13/25 13:46 Oxygen Delivery Room Air 01/13/25 13:46 Temperature 97.2 F L 01/13/25 17:07 Pulse Rate 68 01/13/25 17:07 Respiratory Rate 18 01/13/25 17:07 Blood Pressure 121/73 01/13/25 17:07 Pulse Oximetry 99 01/13/25 17:07 Oxygen Delivery Room Air 01/13/25 13:46 MDM - URI/Sore Throat MDM Narrative Medical decision making narrative: Patient presented to ED wanting COVID testing. Sore throat and fatigue x1 day. No other significant symptoms. Vital signs stable. Strep, influenza, RSV, COVID negative. Discussed possibility of viral URI. Discussed management of such. Patient given return precautions. Discharged in stable condition. Medical Records Attestation: I reviewed the patient's medical records. Lab Data Attestation: I reviewed the patient's lab results. Labs: Lab Results 01/13/25 01/13/25 Range/Units 16:06 16:13 Influenza A (RT-PCR) Negative (Negative) Influenza B (RT-PCR) Negative (Negative) RSV (RT-PCR) Negative (Negative) SARS-CoV-2 RNA (RT-PCR) Negative (Negative) Group A Strep (PCR) Not detected (Negative) Discharge Plan Discharge Clinical Impression: Pharyngitis Qualifiers: Pharyngitis/tonsillitis etiology: unspecified etiology Qualified Code(s): J02.9 - Acute pharyngitis, unspecified Upper respiratory infection Qualifiers: URI type: unspecified URI Qualified Code(s): J06.9 - Acute upper respiratory infection, unspecified Patient Disposition: Home Condition: Stable Instructions: Antibiotic Form, Pharyngitis (ED), Cold Symptoms (ED) Additional Instructions: Your testing for influenza, RSV, COVID, strep was negative. Stay well-hydrated at home. Recommend electrolyte rich fluids, Gatorade, Pedialyte, body armor. Recommend Tylenol and Ibuprofen for discomfort and/or fevers. Recommend ntjr-uvh-kdovorn cough and cold medicines for symptom relief, Delsym, Mucinex, DayQuil, NyQuil, Sudafed, Robitussin, TheraFlu. Follow with primary care doctor upon resolution of symptoms. Return to the ED if you experience chest pain, difficulty breathing, unable to keep down food or drink, severe pain, or any other symptoms of concern. Patient Language: Cymro Prescriptions: No Action amlodipine [Norvasc] 10 mg tablet 10 mg PO DAILY amlodipine 10 mg tablet 10 mg PO DAILY Qty: 30 0RF amlodipine 10 mg tablet 10 mg PO DAILY Qty: 30 0RF Follow-up/Referrals: Jayjay Cantu MD [Primary Care Provider] - Stand Alone Forms: Work/School Release IP Time of Disposition: 16:52
[2025-01-13 16:41] LABS: Strep Group A RT-PCR NOT DETECTED (Negative)
[2025-01-13 16:47] LABS: Influenza A QL RT-PCR Negative (Negative); Influenza B QL RT-PCR Negative (Negative); RSV RNA, RT-PCR Negative (Negative); SARS-CoV-2 RNA PCR Negative (Negative)
--- OUTSIDE RECORDS SUMMARY | 2025-01-13 16:58 | XMS_ITS | Encounter Summary ---
Author Organization [facility] Address [address] [place] [address] Phone Care Team Providers Care Dam Attendant Name Role Phone Krysta Flores PAC Primary Care Pro vider Ami Amin MD Unavailable Jayjay Cantu MD Primary Care Provider [phone] Reason for Visit * Reason Comments Medication Refill Encounter Details Date Type Department Care Team (Late st Contact Info) Description 10/12/2020 Refill [facility] Medical Group - Family [facility] [address] [place] [address] Krysta Flores, PAC [address] [place] [address] Medication Refill Social History Tobacco [...] Receipt confirmed by pharmacy (10/04/2020 10:00 AM AUTO CLUTCH REBUILDER) gabapentin (NEURONTIN) 100 MG Capsule [[id number]] 1000 Status: Active Ordering user: Krysta Flores PAC 10/04/20 1000 Authorized by: Krsyta Flores PAC Frequency: ??10/04/20 - Until Discontinued Released by: Krysta Flores PAC 10/04/20 1000 Pharmacy [id number] [facility] duplicate CLUTCH REBUILDER documented in this encounter Plan of Treatment Not on file documented as of this encounter Visit Diagnoses Not on filedocumented in this encounter Additional Health Concerns Infection Onset Date Last Indicated Resolved Time COVID - 19 09/19/2024 09/19/2024 09/19/2024 11:5 8 AM AUTO CLUTCH REBUILDER COVID - 19 Confirmed 09/19/2024 09/19/2024 025 12:16 AM AUTO CLUTCH REBUILDER Assessment Noted Time PHQ-9 Depression Total Score: 0 11/05/19 19 12:00 PM CDT documented as of this encounter Care Teams Dam Attendant Relationship Specialty Start Date End Date Krysta Flores PAC [address] [place] [address] PCP - General Physician Apprentice Embalmer 05/31/17 11/23/21 Jayjay Cantu MD NPI: [id number] [place] [address] [place] [address] PCP - General Internal Medicine 09/19/24 Ami Amin MD [address] [address] Psychiatry 05/28/19 documented as of this encounter
--- OUTSIDE RECORDS SUMMARY | 2025-01-13 16:58 | XMS_ITS | Clinical Summary ---
Author Organization [facility] Address [address] [place] [address] Phone Care Team Providers Care Stone Repairer Name Role Phone Ami Amin MD Unavailable Jayjay Cantu MD Primary Care Provider [phone] Medications QUEtiapine Fumarate (SEROQUEL) 50 MG Tablet [...] Care Team Description 10/28/2024 Telephone [facility] [address], [address] [place] [id number] Nina Harding, PT from Last 3 Months [...] Comments Blood Pressure 130/99 09/19/2024 12:50 PM ORDER PROCESSOR Pulse 88 09/19/2024 12:50 PM ORDER PROCESSOR Temperature 36.6 C (97.8 F) 09/19/2024 10:49 AM ORDER PROCESSOR Respiratory Rate 17 09/19/2024 12:50 PM ORDER PROCESSOR Oxygen Saturation 100% 09/19/2024 12:50 PM ORDER PROCESSOR Inhaled Oxygen Concentration - - Weight 63.5 kg (140 lb) 09/19/2024 10:49 AM ORDER PROCESSOR Height 167.6 cm (5' 6 ) 09/19/2024 10:49 AM ORDER PROCESSOR Body Mass Index 22.6 09/19/2024 10:49 AM ORDER PROCESSOR Plan of Treatment Health Maintenance Due Date [...] - 4.00 ng/mL 11/05/2017 8:44 AM CDT [facility] Blood specimen (specimen) BLOOD SPECIMEN / Unknown Venipuncture / Unknown 11/05/2017 7:28 AM CDT 11/05/2017 7:57 AM CDT Narrative [facility] - 11/05/2017 8:44 AM CDT PSA NOTE: The PSA value should be used in conjunction with information available from clinical evaluation and other diagnostic procedures. Jamaal Rahman DO CHEMISTRY ORDERABLES Final Resu lt [facility] [address] [place] [address] from Last 3 Months or Most Recently Relevant to Health Maintenance Insurance MEDICAID [place] Care Teams Stone Repairer Relationship Specialty Start Date End Date Jayjay Cantu MD [address] [facility], [place] [address] PCP - General Internal Medicine 09/19/24 Ami Amin MD [address] [place] [address] Psychiatry 05/28/19
--- OUTSIDE RECORDS SUMMARY | 2025-01-13 16:58 | XMS_ITS | Encounter Summary ---
Author Organization [facility] Address [address] [place] [address] [place] [address] Phone Care Team Providers Care Red Lead Burner Name Role Phone Krysta Flores PAC Primary Care Pro vider Ami Amin MD Unavailable Jayjay Cantu MD Primary Care Provider [phone] Reason for Visit * Reason Comments Medication Refill Encounter Details Date Type Department Care Team (Late st Contact Info) Description 03/03/2021 Refill [facility] Medical Group - Family [facility] [address] [place] [address] Krysta Flores, PAC [address] [facility] [address] Medication Refill Social History Tobacco [...] Chronic bilateral low back pain without sciatica [facility] - Krysta Zavala PAC 1 year ago Essential hypertension [facility] Krysta Zavala PAC 1 year ago Essential hypertension [facility] Krysta Zavala PAC 2 years ago Essential hypertension [facility] - Krysta Zavala PAC 2 years ago [facility] Upcoming Appointments ZONING TECHNICIAN - Recent and Past Visits Recent Visits Date Type Provider Dept 07/16/20 Office Visit Krysta Flores PAC [facility] Showing recent visits within past 460 [...] 19 09/19/2024 09/19/2024 09/19/2024 11:5 8 AM ETHYLENE COMPRESSOR OPERATOR COVID - 19 Confirmed 09/19/2024 09/19/202410/09/2 025 12:16 AM ETHYLENE COMPRESSOR OPERATOR Assessment Noted Time PHQ-9 Depression Total Score: 0 03/11/20 19 12:00 PM CDT documented as of this encounter Care Teams Red Lead Burner Relationship Specialty Start Date End Date Krysta Flores, PRAVIN [address] [facility] [place] [address] PCP - General Physician Early Childhood Education Worker 05/31/17 11/23/21 Jayjay Cantu MD [address] [facility] [place] [address] PCP - General Internal Medicine 09/19/24 Ami Amin MD [address] [address] Psychiatry 05/28/19 documented as of this encounter
--- OUTSIDE RECORDS SUMMARY | 2025-01-13 16:58 | XMS_ITS | Encounter Summary ---
Author Organization [facility] Address [address] [place] [facility] [place] [address] Phone Care Team Providers Care Lead Athlete Name Role Phone Ami Amin MD Unavailable Jayjay Cantu MD Primary Care Provider [phone] Reason for Referral * PT/OT/ST (Routine) - Authorized Specialty Diagnoses / Procedures Referred By Contac t Referred To Contact Physical Therapy Diagnoses Adhesive capsulitis of right shoulder Jayjay Cantu MD [address] [place] [address] [place] [address] Phone: tel: fax: [facility] [address] [facility], [address] [address] Phone: tel: fax: Referral ID Status Reason Start Date Expiration Date V isits Requested Visits Authorized [id number] Authorized 09/24/2024 50 12 Scheduling Instructions STERED PUBLIC SURVEYOR Encounter Details Date Type Department Care Team (Late st Contact Info) Description 09/24/2024 Transcribe Orders [facility] [address] [place] [address] Jayjay Cantu MD [address] [place] [address] Adhesive capsulitis of right shoulder (Primary Dx) [...] 19 Confirmed 09/19/2024 09/19/2024 025 12:16 AM REGISTERED PUBLIC SURVEYOR Assessment Noted Time PHQ-9 Depression Total Score: 0 11/05/19 19 12:00 PM CDT documented as of this encounter Care Teams Lead Athlete Relationship Specialty Start Date End Date Jayjay Cantu MD [address] [place] [address] PCP - General Internal Medicine 09/19/24 Ami Amin MD [facility] [address] [address] Psychiatry 05/28/19 documented as of this encounter
--- OUTSIDE RECORDS SUMMARY | 2025-01-13 16:58 | XMS_ITS | Encounter Summary ---
Author Organization [facility] Address [address] [place] [address] Phone Care Team Providers Care Rod Pointer Name Role Phone Krysta Flores PAC Primary Care Pro vider Ami Amin MD Unavailable Jayjay Cantu MD Primary Care Provider [phone] Reason for Visit * Reason Comments Medication Refill Encounter Details Date Type Department Care Team (Late st Contact Info) Description 10/23/2020 Refill [facility] Medical Group - Family [facility] [address] [place] [address] Krysta Flores, PAC [address] [place] [address] Medication Refill Social History Tobacco [...] to get this medication in the future RONMENTAL SCIENCE TECHNICIAN * Telephone Encounter - Kalpana Tsai RN - 10/25/2020 10:01 AM ENVIRONMENTAL SCIENCE TECHNICIAN Please review and sign. RONMENTAL SCIENCE TECHNICIAN documented in this encounter Plan of Treatment Not on file documented as of this encounter Visit Diagnoses Not on filedocumented in this encounter Additional Health Concerns Infection Onset Date Last Indicated Resolved Time COVID - 19 09/19/2024 09/19/2024 09/19/2024 11:5 8 AM ENVIRONMENTAL SCIENCE TECHNICIAN COVID - 19 Confirmed 09/19/2024 09/19/2024 025 12:16 AM ENVIRONMENTAL SCIENCE TECHNICIAN Assessment Noted Time PHQ-9 Depression Total Score: 0 11/05/19 19 12:00 PM CDT documented as of this encounter Care Teams Rod Pointer Relationship Specialty Start Date End Date Krysta Flores PAC [address] [place] [address] PCP - General Physician Cyber Security Architect 05/31/17 11/23/21 Jayjay Cantu MD [address] [facility] [address] PCP - General Internal Medicine 09/19/24 Ami Amin MD [address] [place] [address] Psychiatry 05/28/19 documented as of this encounter
--- OUTSIDE RECORDS SUMMARY | 2025-01-13 16:58 | XMS_ITS | Encounter Summary ---
Author Organization [facility] Address [address] [place] [address] Phone Care Team Providers Care Tissue Recovery Technician Name Role Phone Krysta Flores PAC Primary Care Pro vider Ami Amin MD Unavailable Jayjay Cantu MD Primary Care Provider [phone] Reason for Visit * Reason Comments Medication Refill Encounter Details Date Type Department Care Team (Late st Contact Info) Description 09/24/2020 Refill [facility] Medical Group - Family [facility] [address] [place] [address] Krysta Floers, PAC [address] [facility] [place] [address] Medication Refill Social History Tobacco [...] / See telephone encounter in chart 10/11/20. H COOK * Telephone Encounter - Krysta Flores PAC - 10/04/2020 10:00 AM CST Does this patient see neurologist? If so, future Neurontin orders need to come thru them. Thanks! H COOK * Telephone Encounter - Elle Danielson RN [...] without sciatica [facility] - Krysta Zavala PAC 10 months ago Essential hypertension [facility] - Krysta Zavala PAC 1 year ago Essential hypertension [facility] - Krysta Zavala PAC 1 year ago Essential hypertension [facility] - Krysta Zavala PAC 2 years ago Arthritis [facility] - Krysta Zavala PAC Upcoming Appointments Future Appointments In 3 months Krysta Flores PAC [facility] Medical Group - Internal Medicine - Pooja Starr SUIT MAKER - Recent and Past Visits Recent Visits [...] authorizing provider and meeting all other requirements H COOK documented in this encounter Plan of Treatment Not on file documented as of this encounter Visit Diagnoses Not on filedocumented in this encounter Additional Health Concerns Infection Onset Date Last Indicated Resolved Time COVID - 19 09/19/2024 09/19/2024 09/19/2024 11:5 8 AM LUNCH COOK COVID - 19 Confirmed 09/19/2024 09/19/2024 025 12:16 AM LUNCH COOK Assessment Noted Time PHQ-9 Depression Total Score: 0 11/05/19 19 12:00 PM CDT documented as of this encounter Care Teams Tissue Recovery Technician Relationship Specialty Start Date End Date Krysta Flores PAC [address] [place] [address] PCP - General Physician Health Care Assistant 05/31/17 11/23/21 Jayjay Cantu MD [address] [facility] [place] [address] PCP - General Internal Medicine 09/19/24 Ami Amin MD [address] [address] Psychiatry 05/28/19 documented as of this encounter
--- OUTSIDE RECORDS SUMMARY | 2025-01-13 16:59 | XMS_ITS | CONTINUITY OF CARE DOCUMENT ---
Author Name nikolas connor Address Unknown Organization [facility] Address [address] [place] [address] Phone [phone] Care Team Providers Care Emergency Management Coordinator Name Role Phone Ayden JIMENEZ, Carmen Unavailable RHYS GAFFNEY MD Unavailable RHYS GAFFNEY MD Unavailable [phone] PROBLEMS Condition Status Date Provider Notes Chest pain- normal echo and stress test active Carmen Hensley MD HTN essential active Carmen Hensley MD Tobacco abuse active Carmen Hensley MD FAMILY HISTORY OF HEART DISEASE active Rcoael Hensley MD Alcohol abuse active Carmen Hensley MD ENCOUNTERS Date Type Provider Location Encounter Diag nosis - In-person encounter Office Visit Carmen Hensley MD [place] [facility] Chest pain- normal echo and stress test - In-person encounter Office Visit Carmen Hensley MD [place] [facility] Chest pain- normal echo and stress [...] times daily Aparna Stevenson VITAMIN D (ERGOCALCIFEROL) 20365 UNIT ORAL CAPSULE active once a week [...] Payer name Policy type / Coverage type [employer] MEDICAID Medicaid [id number] TREATMENT PLAN Date Name Performer Cardiology Carmen Hensley MD Cardiology Carmen Hensley MD Cardiology Carmen Hensley MD Cardiology Carmen Hensley MD Cardiology Carmen Hensley MD Cardiology Carmen Hensley MD Cardiology Carmen Hensley MD Cardiology Carmen Hensley MD Cardiology Carmen Hensley MD HISTORY OF PROCEDURES Procedure Date Procedure Name Provider Procedure Notes S tatus SNOMED-CT: 53992852 Physical Exam, Performed: Pulse Exam of Foot Carmen Hensley MD completed SNOMED-CT: 463647285 Smoking Cessation Counseling Carmen Hensley MD completed SNOMED-CT: 642354936 688790 Current Medications Documented Carmen Hensley MD completed Cardiolite, 2 units Carmen Hensley MD completed SPECT Images Carmen Hensley MD complet ed Stress EKG Carmen Hensley MD completed SNOMED-CT: 631745138 Smoking Cessation Counseling Carmen Hensley MD completed SNOMED-CT: 96675991 Physical Exam, Performed: Pulse Exam of Foot Carmen Hensley MD completed EKG Carmen Hensley MD completed SNOMED-CT: 222356859 139248 Current Medications Documented Carmen Hensley MD completed
--- OUTSIDE RECORDS SUMMARY | 2025-01-13 16:59 | XMS_ITS | Clinical Summary ---
Author Organization [email or web address] Address [address] [place] [address] Care Team Providers Care Engagement Lead Name Role Phone Unavailable Primary Care Provider Unavailabl e Source Comments [email or web address],non-owned Affiliates and Associated Physician Practices is amultiple site organization consisting of ambulatory clinics and hospital sitesin [place], [place], [place] and [place]. This disclosure is being madepursuant to the Care Everywhere program and may not contain all information available regarding this patient. Last updated [email or web address] Allergies Active Allergy Reactions Criticality Noted Date [...] on file Legal Sex Male 9:15 PM [employer] ST[employer] Gender Identity Not on file Sexual Orientation Not on file Last Filed Vital Signs Vital Sign Reading Time Taken Comments Blood Pressure 154/106 06/07/2018 11:06 AM CDT Pulse 67 06/07/2018 11:06 AM CDT Temperature 36.5 C (97.7 F) 06/07/2018 11:06 AM CDT Respiratory Rate 18 07/17/2017 12:19 PM B[facility] STAP[employer]ER Oxygen Saturation 96% 06/07/2018 11:06 AM CDT [...] LIPID PROFILE AM Draw 07/16/2017 2:08 AM [facility] HEMOGLOBIN A1C Routine 07/16/2017 2:07 AM [employer] ST[employer]ER from Last 3 Months or Most Recently Relevant to Health Maintenance Results * LIPID PROFILE (07/16/2017 2:08 AM [facility] ST[employer]) Cholesterol 159 <200 mg/dL 07/16/2017 2:43 AM [facility] Triglycerides 86 <150 mg/dL 07/16/2017 2:43 AM [facility] HDL Cholesterol 55 >40 mg/dL 7 2:43 AM [facility] LDL Calculated 87 <130 mg/dL 07/16/2017 2:43 AM [facility] VLDL Calculated 17 <=30 mg/dL 7 2:43 AM [facility] Chol HDL Ratio 2.9 <4.5 07/16/2017 2:43 AM [facility] LDL/HDL Ratio 1.6 <5.0 07/16/2017 2:43 AM [facility] Blood BLOOD SPECIMEN / Unknown Venipuncture / Unknown 07/16/2017 2:08 AM B[facility] ST[facility]ER 07/16/2017 2:18 AM [facility] ST[employer]ER Saleem Patel MD LAB - CHEMISTRY ORD ERABLES Final Result Performing Organization Address [facility] Co de Phone Number [facility] [address] [place] [address] * HEMOGLOBIN A1C (07/16/2017 2:07 AM B[facility] STAPLER) Hemoglobin A1c 5.1 4.2 - 6.3 % 07/16/2017 2:40 AM [facility] Estimated Average Glucose 100 mg/dL 07/16/2017 2:40 AM B[facility] ST[facility]ER [facility] Whole Blood BLOOD SPECIMEN WITH EDTA / Unknown Venipuncture / Unknown 07/16/2017 2:07 AM [facility] ST[facility]ER 07/16/2017 2:18 AM [facility]ER Saleem Patel MD LAB - CHEMISTRY ORD ERABLES Final Result Performing Organization Address [facility] de Phone Number [facility] [address] [place] [address] from Last 3 Months or Most Recently Relevant to Health Maintenance Insurance [facility] MEDICAID - [place] Advance Directives * Full Code (Latest Code Status on File) Date Activated Date Inactivated Comments 07/16/2017 1:38 AM 07/17/2017 3:46 PM
[2025-01-13 17:07] VITALS: BP 121/73; PULSE 68; RESP 18; TEMP 36.2; O2SAT 99
== END 2025-01-13 17:11 | disposition home or self-care (01) ==
PROVIDERS: Emergency Provider Physician Assistant; PCP Internal Medicine
DX: J06.9 Acute upper respiratory infection, unspecified (principal); Z20.822 Contact with and (suspected) exposure to COVID-19; I10 Essential (primary) hypertension; Z86.19 Personal history of other infectious and parasitic diseases
CPT/HCPCS: 87637; 87651; 99283